=== PATIENT | male | born 1930 | race Caucasian/White ===

== ENCOUNTER 2017-01-23 18:08 | Inpatient (IN) | payer MEDICARE, OTHER ==
--- NOTE | 2017-01-23 18:17 | ER Document Report ---
ED Medical Screen (RME) - General Stated Complaint: DIARRHEA, WEAKNESS Time seen by provider: 18:16 Mode of Arrival: Medic Information source: Patient Notes: 86-year-old male presents to ED via EMS for diarrhea for a year and weakness for a week your patient has a history of A. fib. EMS states he is in A. fib right now. I have greeted and performed a rapid initial assessment of this patient. A comprehensive ED assessment and evaluation of the patient, analysis of test results and completion of medical decision making process will be conducted by an additional ED providers. TRAVEL OUTSIDE OF THE [place] IN LAST 30 DAYS: No - Related Data Allergies/Adverse Reactions: No Known Allergies Allergy (Verified 10/03/12 13:12) Past Medical History - Past Medical History Cardiac Medical History: Reports: Hx Atrial Fibrillation - intermittent, Hx Hypercholesterolemia, Hx Hypertension Renal/ Medical History: Reports: Hx Benign Prostatic Hyperplasia GI Medical History: Reports: Hx Gastroesophageal Reflux Disease Musculoskeltal Medical History: Reports Hx Arthritis, Reports Hx Musculoskeletal Deformity, Reports Hx Musculoskeletal Trauma Psychiatric Medical History: Reports: Hx Anxiety, Hx Depression Past Surgical History: Reports: Hx Cardiac Catheterization - several, Hx Cardiac Surgery - ablation, Hx Cholecystectomy, Hx Inguinal Hernia, Hx Orthopedic Surgery - diskectomy - Immunizations Hx Diphtheria, Pertussis, Tetanus Vaccination: No
[2017-01-23 19:20] LABS: HEMATOCRIT 32.4 % (37.9-51.0); HEMOGLOBIN 10.7 g/dL (13.5-17.0); HGB HCT DIFFERENCE -0.3; MEAN CORPUSCULAR HEMOGLOBIN 37.1 pg (27.0-33.4); RED BLOOD COUNT 2.89 10^6/uL (4.35-5.55); RED CELL DISTRIBUTION WIDTH 13.5 % (11.5-14.0); WHITE BLOOD COUNT 16.8 10^3/uL (4.0-10.5)
[2017-01-23 19:38] LABS: ALANINE AMINOTRANSFERASE 21 U/L (21-72); ALBUMIN 2.5 g/dL (3.5-5.0); ALKALINE PHOSPHATASE 183 U/L (38-126); ANION GAP 14 (5-19); ASPARTATE AMINO TRANSFERASE 20 U/L (17-59); BILIRUBIN,DIRECT 0.4 mg/dL (0.0-0.4); BILIRUBIN,TOTAL 0.5 mg/dL (0.2-1.3); BLOOD UREA NITROGEN 37 mg/dL (7-20); CARBON DIOXIDE 21 mmol/L (22-30); CHLORIDE 107 mmol/L (98-107); CREATINE KINASE 154 U/L (55-170); CREATININE RESULT 1.45 mg/dL (0.52-1.25); GLUCOSE 113 mg/dL (75-110); POTASSIUM 3.5 mmol/L (3.6-5.0); SODIUM 142.1 mmol/L (137-145); TOTAL PROTEIN 5.9 g/dL (6.3-8.2)
[2017-01-23 19:46] LABS: CALCIUM 4.8 mg/dL (8.4-10.2)
[2017-01-23 19:48] LABS: BASOPHILS % (MANUAL) 1 % (0-2); EOSINOPHILS % (MANUAL) 0 % (0-6); LYMPHOCYTES % (MANUAL) 50 % (13-45); TOTAL CELLS COUNTED 100
[2017-01-23 19:51] LABS: POLYCHROMASIA SLIGHT; SMUDGE CELLS PRESENT; TOXIC GRANULATION SLIGHT
[2017-01-23 19:52] LABS: PLATELET CLUMPS PRESENT; TARGET CELLS SLIGHT
[2017-01-23 19:53] LABS: MEAN CORPUSCULAR VOLUME 112 fl (80-97)
[2017-01-23] MEDS ORDERED: NORMAL SALINE 1000 ML 500 ML IV ONE (21:25)
--- NOTE | 2017-01-23 21:31 | ER Document Report ---
ED General - General Chief Complaint: General Weakness Stated Complaint: DIARRHEA, WEAKNESS Mode of Arrival: Medic Information source: Patient, Relative Notes: This is an 86-year-old male with multiple medical problems who presents with increasing weakness for the past 2 weeks. Patient says that this is gotten to the point where she has to assist him even to sit up in the bed. Of note the patient has had chronic diarrhea for about a year. He states that he has a bowel movement every 3 or 4 days and that it is always diarrhea. He has noticed some black stool. He has had nausea but no vomiting. Intermittent abdominal cramping but no current abdominal pain. He denies any fevers or chills. He is never had a seizure. He is unsure if he is ever been told that his calcium is low before. Chart review reveals that he was seen in the ER for diarrhea at some point last year at which time he was prescribed Cipro and followed up with his primary care physician. He states that the diarrhea has been persistent since then. Of note he takes Imodium frequently. TRAVEL OUTSIDE OF THE [place] IN LAST 30 DAYS: No - Related Data Allergies/Adverse Reactions: No Known Allergies Allergy (Verified 10/03/12 13:12) Past Medical History - General Information source: Patient, H Records - Social History Smoking Status: Unknown if Ever Smoked Family History: Reviewed & Not Pertinent Patient has suicidal ideation: No Patient has homicidal ideation: No - Past Medical History Cardiac Medical History: Reports: Hx Atrial Fibrillation - intermittent, Hx Hypercholesterolemia, Hx Hypertension Renal/ Medical History: Reports: Hx Benign Prostatic Hyperplasia. Denies: Hx Peritoneal Dialysis GI Medical History: Reports: Hx Gastroesophageal Reflux Disease Musculoskeltal Medical History: Reports Hx Arthritis, Reports Hx Musculoskeletal Deformity, Reports Hx Musculoskeletal Trauma Psychiatric Medical History: Reports: Hx Anxiety, Hx Depression Past Surgical History: Reports: Hx Cardiac Catheterization - several, Hx Cardiac Surgery - ablation, Hx Cholecystectomy, Hx Inguinal Hernia, Hx Orthopedic Surgery - diskectomy - Immunizations Hx Diphtheria, Pertussis, Tetanus Vaccination: No Review of Systems - Review of Systems Notes: REVIEW OF SYSTEMS: CONSTITUTIONAL : Denies fever, chills, or sweats. Denies recent illness. EENT: Denies eye, ear, throat, or mouth pain or symptoms. Denies nasal or sinus congestion. CARDIOVASCULAR: Denies chest pain. RESPIRATORY: Denies cough, cold, or chest congestion. Denies shortness of breath, difficulty breathing, or wheezing. GASTROINTESTINAL: As per history of present illness GENITOURINARY: Denies difficulty urinating, painful urination, burning, frequency, or blood in urine. MUSCULOSKELETAL: Denies neck or back pain or joint pain or swelling. SKIN: Denies rash or skin lesions. HEMATOLOGIC : Denies easy bruising or bleeding. LYMPHATIC: Denies swollen, enlarged glands. NEUROLOGICAL: Denies altered mental status or loss of consciousness. Denies headache. PSYCHIATRIC: Denies anxiety or stress or depression. ALL OTHER SYSTEMS REVIEWED AND NEGATIVE. Physical Exam - Vital signs Vitals: Temp Pulse Resp BP Pulse Ox 97.4 F 78 16 117/69 100 01/23/17 18:20 01/23/17 18:20 01/23/17 18:20 01/23/17 18:20 01/23/17 18:20 - Notes Notes: PHYSICAL EXAMINATION: GENERAL: Thin frail elderly male who is in no acute distress but appears tired and pale. Pleasant and conversant HEAD: Atraumatic, normocephalic. EYES: Pupils equal round and reactive to light, extraocular movements intact, sclera anicteric, conjunctiva are normal. ENT: nares patent, oropharynx clear without exudates. Mucous membranes somewhat dry NECK: Normal range of motion, supple without lymphadenopathy LUNGS: Breath sounds clear to auscultation bilaterally and equal. No wheezes rales or rhonchi. HEART: Regular rate and rhythm, 4/5 systolic murmur across precordium ABDOMEN: Soft, nontender, normoactive bowel sounds. No guarding, no rebound. No masses appreciated. Rectal exam with external hemorhoid that is not bleeding or inflamed. Dark stool in vault, soft. EXTREMITIES: Normal range of motion, 1+ bilateral LE edema, symmetric. NEUROLOGICAL: Cranial nerves grossly intact. No gross focal motor or sensory deficits appreciated. PSYCH: Normal mood, normal affect. SKIN: Warm, Dry, pale normal turgor, no rashes or lesions noted. Course - Re-evaluation Re-evalutation: 01/23/17 22:31 Patient noted to be markedly hypocalcemic and hypomagnesemic. He is hemodynamically stable. Magnesium will be repleted first followed by IV calcium. I discussed the case with Dr. Hoyt who will admit the patient to the [facility] - Vital Signs Vital signs: Temp Pulse Resp BP Pulse Ox 97.4 F 78 15 105/75 100 01/23/17 18:20 01/23/17 18:20 01/23/17 21:31 01/23/17 21:31 01/23/17 18:20 - Laboratory Result Diagrams: 01/23/17 18:49 01/23/17 18:49 Laboratory results interpreted by me: 01/23/17 01/23/17 01/23/17 18:49 18:49 18:49 WBC 16.8 H RBC 2.89 L Hgb 10.7 L Hct 32.4 L MCV 112 H MCH 37.1 H Plt Count 108 L Lymphocytes % (Manual) 50 H Monocytes % (Manual) 1 L Abs Lymphs (Manual) 8.9 H Potassium 3.5 L Carbon Dioxide 21 L BUN 37 H Creatinine 1.45 H Est GFR ( Amer) 56 L Est GFR (Non-Af Amer) 46 L Glucose 113 H Calcium 4.8 L* Ionized Calcium Jazmine Magnesium 0.5 L* Alkaline Phosphatase 183 H Total Protein 5.9 L Albumin 2.5 L 01/23/17 21:25 WBC RBC Hgb Hct MCV MCH Plt Count Lymphocytes % (Manual) Monocytes % (Manual) Abs Lymphs (Manual) Potassium Carbon Dioxide BUN Creatinine Est GFR ( Amer) Est GFR (Non-Af Amer) Glucose Calcium Ionized Calcium Jazmine 0.72 L Magnesium Alkaline Phosphatase Total Protein Albumin - Diagnostic Test Radiology reviewed: Reports reviewed - CT abd/pelvis: diffuse ascites. Large pleural effusion L>R Discharge - Discharge Clinical Impression: Hypocalcemia, Hypomagnesemia, Chronic diarrhea, Hypoalbuminemia Atrial fibrillation Qualifiers: Atrial fibrillation type: chronic Qualified Code(s): I48.2 - Chronic atrial fibrillation Ascites Qualifiers: Ascites type: other type Qualified Code(s): R18.8 - Other ascites Condition: Fair Disposition: ADMITTED INPATIENT Admitting Provider: Evelina Unit Admitted: [facility]
[2017-01-23] MEDS ORDERED: POTASSIUM CHLORIDE 20 MEQ/15 ML UDCUP PO ONE (21:57)
[2017-01-23] MEDS: MAGNESIUM SULFATE/D5W 100 ML IV SCH ×2 (22:05→23:25)
[2017-01-23] MEDS ORDERED: METRONIDAZOLE 500 MG/NS RTU 100 ML IV ONE (22:25)
[2017-01-23] MEDS ORDERED: CIPROFLOXACIN 400 MG/D5W RTU 200 ML IV SCH (23:00)
[2017-01-24] MEDS ORDERED: CALCIUM GLUCONATE 1000 MG/10 ML INJ IV ONE (00:04)
[2017-01-24 03:28] LABS: APPEARANCE,URINE CLEAR; BILIRUBIN,URINE NEGATIVE (NEGATIVE); GLUCOSE, URINE NEGATIVE (NEGATIVE); KETONES,URINE NEGATIVE (NEGATIVE); LEUKOCYTE ESTERASE,URINE NEGATIVE (NEGATIVE); NITRITE,URINE NEGATIVE (NEGATIVE); PROTEIN,URINE NEGATIVE (NEGATIVE); URINE SPECIFIC GRAVITY 1.019; UROBILINOGEN,URINE NEGATIVE mg/dL (<2.0)
[2017-01-24 05:10] LABS: ANION GAP 11 (5-19); BLOOD UREA NITROGEN 35 mg/dL (7-20); CARBON DIOXIDE 22 mmol/L (22-30); CHLORIDE 108 mmol/L (98-107); CREATININE RESULT 1.34 mg/dL (0.52-1.25); GLUCOSE 97 mg/dL (75-110); PHOSPHORUS 3.7 mg/dL (2.5-4.5); SODIUM 141.3 mmol/L (137-145)
[2017-01-24 05:22] LABS: CALCIUM 5.1 mg/dL (8.4-10.2); MAGNESIUM 0.8 mg/dL (1.6-2.3)
--- NOTE | 2017-01-24 08:08 | EKG REPORT ---
SEVERITY:- ABNORMAL ECG - ATRIAL FIBRILLATION RIGHT BUNDLE BRANCH BLOCK [employer] [facility] [place] : Confirmed by: Parmjit Rendon MD 24-Jan-2017 08:07:31
[2017-01-24] MEDS: MAGNESIUM SULFATE 1 GM/D5W 100 ML IV SCH ×2 (08:30→10:09)
[2017-01-24] MEDS ORDERED: ENOXAPARIN SODIUM INJ 40 MG/0.4 ML DISP.SYRIN SUBCUT ONE (09:00)
[2017-01-24] MEDS ORDERED: LEVOMILNACIPRAN HYDROCHLORIDE 80 MG PO SCH (10:00)
[2017-01-24] MEDS ORDERED: NADOLOL 20 MG PO SCH ×2 (10:00)
[2017-01-24] MEDS: NADOLOL 40 MG TABLET PO SCH (10:14)
[2017-01-24] MEDS: POTASSIUM CHLORIDE 10 MEQ TABLET.SA PO SCH (10:14)
[2017-01-24] MEDS: LANSOPRAZOLE 30 MG TAB.RAP.DR PO SCH (10:14)
[2017-01-24] MEDS: TAMSULOSIN HCL 0.4 MG CAP.SR.24H PO SCH (10:15)
[2017-01-24] MEDS: VALSARTAN 80 MG TABLET PO SCH (10:15)
[2017-01-24] MEDS: ASPIRIN 81 MG TABLET, CHEWABLE PO SCH (10:15)
[2017-01-24] MEDS: FOLIC ACID 1 MG TABLET PO SCH (10:15)
[2017-01-24] MEDS: TRAMADOL HCL 50 MG TABLET PO PRN ×2 (10:20→15:14)
[2017-01-24] MEDS ORDERED: CALCIUM GLUCONATE 6,666 MG in DEXTROSE 5%-WATER 500 ML IV ONE (10:30)
[2017-01-24 11:14] LABS: PROTHROMBIN TIME 17.7 SEC (11.4-15.4)
[2017-01-24 11:15] LABS: PARTIAL THROMBOPLASTIN TIME 34.3 SEC (23.5-35.8)
[2017-01-24] MEDS: CIPROFLOXACIN 400 MG/D5W RTU 200 ML IV SCH ×2 (11:25→22:34)
[2017-01-24] MEDS: METRONIDAZOLE 500 MG/NS RTU 100 ML IV SCH ×2 (12:58→17:55)
[2017-01-24 15:25] LABS: PATH REVIEW PATHOLOGIST REVIEWED
[2017-01-24] MEDS ORDERED: (PENDING PHARMACY ID) (Oxycodone Hcl/Acetaminophen [Percocet 10-325 Mg Tablet] 1 TAB) PO PRN (17:48)
[2017-01-24] MEDS: FINASTERIDE 5 MG TABLET PO SCH (17:54)
[2017-01-24] MEDS: FENTANYL 50 MCG/HR PATCH.TD72 TD SCH (18:08)
[2017-01-24] MEDS: OXYCODONE HCL IR 5 MG TABLET PO PRN (18:17)
[2017-01-24] MEDS: OXYCODONE-ACETAMINOPHEN 5-325 MG TABLET PO PRN (18:17)
--- NOTE | 2017-01-24 18:31 | PDOC H&P ---
History of Present Illness Admission Date/PCP: 01/23/17 22:39 JEROME LUGO History of Present Illness: ROMEO HESTER is a 86 year old male known to my practice who presented to the ED with complaint of worsening debility and persistent diarrhea. Spouse reported that over the last couple of days she had to assist patient to sit or transfer from his bed. Patient reported associated nausea, poor appetite and poor p.o intake. There is associated intermittent cramping abdominal pain. No reported associated fever, chills, or vomiting. Patient reported intermittent episodes of difficulty with urination and decrease voiding per volume in recent time. He does have history of BPH with outflow obstructive symptoms. Patient is on pain management with [facility] and currently on Fentanyl and oxycodone-APAP. His medication do include Linzess and Imodium. Past Medical History Cardiac Medical History: Reports: Atrial Fibrillation - intermittent, Hyperlipidema, Hypertension GI Medical History: Reports: Gastroesophageal Reflux Disease Musculoskeltal Medical History: Reports: Arthritis Psychiatric Medical History: Reports: Depression Past Surgical History Past Surgical History: Reports: Cardiac Catheterization - several, Cholecystectomy, Orthopedic Surgery - diskectomy Social History Smoking Status: Former Smoker Last Time Smoked: 1972 Frequency of Alcohol Use: None Hx Recreational Drug Use: No Drugs: None Hx Prescription Drug Abuse: No Family History Family History: Reviewed & Not Pertinent Parental Family History Reviewed: Yes Children Family History Reviewed: Yes Sibling(s) Family History Reviewed.: Yes Medication/Allergy Home Medications: Aspirin [Aspirin 325 mg Tablet] 325 mg PO QAM 01/24/17 Atorvastatin Calcium 40 mg PO DAILY 01/24/17 Esomeprazole Magnesium [Nexium] 40 mg PO DAILY 01/24/17 Ferrous Sulfate [Iron] 325 mg PO DAILY 01/24/17 Finasteride 5 mg PO QPM 01/24/17 Folic Acid 1 mg PO DAILY 01/24/17 Furosemide [Lasix] 40 mg PO DAILY 01/24/17 Levomilnacipran Hydrochloride [Fetzima] 80 mg PO DAILY 01/24/17 Linaclotide [Linzess 145 Mcg Capsule] 145 mg PO DAILY 01/24/17 Mirtazapine 30 mg PO QHS 01/24/17 Nadolol 20 mg PO DAILY 01/24/17 Ondansetron [Ondansetron Odt] 4 mg PO Q6H PRN 01/24/17 Oxycodone HCl/Acetaminophen [Percocet 10-325 Mg Tablet] 1 each PO Q6 01/24/17 Potassium Chloride 20 meq PO DAILY 01/24/17 Pregabalin [Lyrica 75 mg Capsule] 75 mg PO QHS 01/24/17 Tamsulosin HCl 0.4 mg PO DAILY 01/24/17 Tramadol HCl 100 mg PO TID PRN 01/24/17 Valsartan 80 mg PO DAILY 01/24/17 Allergies/Adverse Reactions: No Known Allergies Allergy (Verified 10/03/12 13:12) Review of Systems Constitutional: PRESENT: anorexia, chills, fatigue, weakness. ABSENT: as per HPI, fever(s), headache(s), night sweats, weight gain, weight loss, other Eyes: ABSENT: visual disturbances Ears: ABSENT: hearing changes Nose, Mouth, and Throat: ABSENT: as per HPI, headache(s), mouth pain, sore throat, vertigo, other Cardiovascular: PRESENT: edema Respiratory: PRESENT: dyspnea Gastrointestinal: PRESENT: diarrhea, nausea Genitourinary: PRESENT: difficulty urinating Musculoskeletal: PRESENT: deformity, joint swelling Integumentary: ABSENT: rash, wounds Neurological: PRESENT: abnormal gait, weakness Psychiatric: PRESENT: depression Endocrine: ABSENT: cold intolerance, heat intolerance, menstrual abnormalities, polydipsia, polyuria Hematologic/Lymphatic: ABSENT: easy bleeding, easy bruising, lymphadenopathy Physical Exam Vital Signs: Temp Pulse Resp BP Pulse Ox 97.7 F 67 16 114/69 97 01/24/17 15:48 01/24/17 15:48 01/24/17 15:48 01/24/17 15:48 01/24/17 04:20 Intake & Output 01/23/17 01/24/17 01/25/17 06:59 06:59 06:59 Intake Total 5 440 Balance 5 440 General appearance: PRESENT: no acute distress, cooperative, disheveled Head exam: PRESENT: atraumatic, normocephalic Eye exam: PRESENT: conjunctiva pink, EOMI, PERRLA. ABSENT: scleral icterus Mouth exam: PRESENT: moist, tongue midline Throat exam: ABSENT: post pharyngeal erythema, tonsillar erythema, tonsillar exudate, tonsillogmegaly, other Neck exam: PRESENT: full ROM. ABSENT: carotid bruit, JVD, lymphadenopathy, thyromegaly Respiratory exam: PRESENT: decreased breath sounds - at lung bases Cardiovascular exam: PRESENT: RRR. ABSENT: diastolic murmur, rubs, systolic murmur Vascular exam: PRESENT: pallor GI/Abdominal exam: PRESENT: normal bowel sounds, soft. ABSENT: distended, guarding, mass, organolmegaly, rebound, tenderness Gentrourinary exam: PRESENT: indwelling catheter Extremities exam: PRESENT: pedal edema Musculoskeletal exam: PRESENT: deformity - due to arthritis joint involvment Neurological exam: PRESENT: alert, awake, oriented to person, oriented to place , oriented to time, oriented to situation, CN II-XII grossly intact. ABSENT: motor sensory deficit Psychiatric exam: PRESENT: appropriate affect, normal mood. ABSENT: homicidal ideation, suicidal ideation Skin exam: PRESENT: dry, intact, warm. ABSENT: cyanosis, rash Results Laboratory Results: 01/24/17 04:34 01/24/17 01/24/17 03:05 04:34 Sodium 141.3 Potassium 4.0 Chloride 108 H Carbon Dioxide 22 Anion Gap 11 BUN 35 H Creatinine 1.34 H Est GFR ( Amer) > 60 Est GFR (Non-Af Amer) 51 L Glucose 97 Calcium 5.1 L* Phosphorus 3.7 Magnesium 0.8 L* Urine Color YELLOW Urine Appearance CLEAR Urine pH 5.0 Ur Specific [place] 1.019 Urine Protein NEGATIVE Urine Glucose (UA) NEGATIVE Urine Ketones NEGATIVE Urine Blood NEGATIVE Urine Nitrite NEGATIVE Ur Leukocyte Esterase NEGATIVE Urine WBC (Auto) 4 Urine RBC (Auto) 0 Impressions: Abdomen/Pelvis CT 01/23/17 21:27 IMPRESSION: Diffuse ascites. Large bilateral pleural effusions, left greater than right. Basilar compressive atelectasis. Anasarca. Assessment & Plan - Diagnosis (1) Senile debility Is this a current diagnosis for this admission?: YesPlan: See admitting physician orders. (2) Hypokalemia due to loss of potassium Is this a current diagnosis for this admission?: YesPlan: See admitting physician orders. (3) Ascites Qualifiers: Ascites type: other type Qualified Code(s): R18.8 - Other ascites Is this a current diagnosis for this admission?: YesPlan: See admitting physician orders. (4) Atrial fibrillation Qualifiers: Atrial fibrillation type: chronic Qualified Code(s): I48.2 - Chronic atrial fibrillation Is this a current diagnosis for this admission?: YesPlan: See admitting physician orders. (5) Chronic diarrhea Is this a current diagnosis for this admission?: YesPlan: See admitting physician orders. (6) Hypoalbuminemia Is this a current diagnosis for this admission?: YesPlan: See admitting physician orders. (7) Hypocalcemia Is this a current diagnosis for this admission?: YesPlan: See admitting physician orders. (8) Hypomagnesemia Is this a current diagnosis for this admission?: YesPlan: See admitting physician orders. (9) Chronic use of opiate drugs therapeutic purposes Is this a current diagnosis for this admission?: YesPlan: See admitting physician orders. (10) Probable sepsis Is this a current diagnosis for this admission?: YesPlan: See admitting physician orders. (11) Anasarca Is this a current diagnosis for this admission?: YesPlan: See admitting physician orders. - Time Time Spent: 50 to 70 Minutes Medications reviewed and adjusted accordingly: Yes Anticipated discharge: Home with Homehealth Within: Other - Inpatient Certification Based on my medical assessment, after consideration of the patient's comorbidities, presenting symptoms, or acuity I expect that the services needed warrant INPATIENT care.: Yes I certify that my determination is in accordance with my understanding of Medicare's requirements for reasonable and necessary INPATIENT services [42 CFR 412.3e].: Yes Medical Necessity: Need Close Monitoring Due to Risk of Patient Decompensation, Need For Continuous Telemetry Monitoring, Need for Pain Control, Need for IV Antibiotics, Risk of Complication if Not Cared For in Hospital Post Hospital Care: D/C Chief Of Staff Documentation - Plan Summary Plan Summary: See admitting physician orders.
[2017-01-24 19:53] LABS: ANION GAP 10 (5-19); BLOOD UREA NITROGEN 31 mg/dL (7-20); CARBON DIOXIDE 21 mmol/L (22-30); CHLORIDE 105 mmol/L (98-107); CREATININE RESULT 1.12 mg/dL (0.52-1.25); GLUCOSE 115 mg/dL (75-110); POTASSIUM 4.1 mmol/L (3.6-5.0); SODIUM 136.3 mmol/L (137-145)
[2017-01-24 20:06] LABS: CALCIUM 6.1 mg/dL (8.4-10.2)
[2017-01-24] MEDS: MAGNESIUM SULFATE/D5W 100 ML IV SCH ×2 (21:29→22:34)
[2017-01-24] MEDS: MIRTAZAPINE 15 MG TABLET PO SCH (21:30)
[2017-01-24] MEDS: ATORVASTATIN CALCIUM 40 MG TABLET PO SCH (21:30)
[2017-01-24] MEDS ORDERED: (PENDING PHARMACY ID) (Mirtazapine [Mirtazapine] 30 MG) PO SCH (22:00)
[2017-01-24] MEDS ORDERED: PREGABALIN 75 MG CAPSULE PO SCH (22:00)
[2017-01-25] MEDS: METRONIDAZOLE 500 MG/NS RTU 100 ML IV SCH ×5 (00:48→23:26)
[2017-01-25] MEDS: OXYCODONE-ACETAMINOPHEN 5-325 MG TABLET PO PRN ×3 (00:49→19:52)
[2017-01-25] MEDS: OXYCODONE HCL IR 5 MG TABLET PO PRN ×2 (00:49→11:23)
[2017-01-25] MEDS: LANSOPRAZOLE 30 MG TAB.RAP.DR PO SCH (05:10)
[2017-01-25 05:31] LABS: HEMATOCRIT 30.3 % (37.9-51.0); HEMOGLOBIN 10.3 g/dL (13.5-17.0); HGB HCT DIFFERENCE 0.6; MEAN CORPUSCULAR HEMOGLOBIN 37.7 pg (27.0-33.4); MEAN CORPUSCULAR HGB CONC 33.8 g/dL (32.0-36.0); MEAN CORPUSCULAR VOLUME 111 fl (80-97); RED BLOOD COUNT 2.72 10^6/uL (4.35-5.55); RED CELL DISTRIBUTION WIDTH 13.3 % (11.5-14.0); WHITE BLOOD COUNT 11.7 10^3/uL (4.0-10.5)
[2017-01-25 05:53] LABS: ALANINE AMINOTRANSFERASE 16 U/L (21-72); ALBUMIN 2.3 g/dL (3.5-5.0); ALKALINE PHOSPHATASE 163 U/L (38-126); ANION GAP 9 (5-19); ASPARTATE AMINO TRANSFERASE 16 U/L (17-59); BILIRUBIN,DIRECT 0.3 mg/dL (0.0-0.4); BILIRUBIN,TOTAL 0.6 mg/dL (0.2-1.3); BLOOD UREA NITROGEN 27 mg/dL (7-20); CARBON DIOXIDE 23 mmol/L (22-30); CHLORIDE 106 mmol/L (98-107); GLUCOSE 108 mg/dL (75-110); MAGNESIUM 1.3 mg/dL (1.6-2.3); PHOSPHORUS 3.2 mg/dL (2.5-4.5); POTASSIUM 4.5 mmol/L (3.6-5.0); TOTAL PROTEIN 5.5 g/dL (6.3-8.2)
[2017-01-25 05:59] LABS: BAND NEUTROPHILS % (MANUAL) 1 % (3-5); BASOPHILS % (MANUAL) 0 % (0-2); EOSINOPHILS % (MANUAL) 2 % (0-6); LYMPHOCYTES % (MANUAL) 49 % (13-45); TOTAL CELLS COUNTED 100
[2017-01-25 06:01] LABS: CALCIUM 6.4 mg/dL (8.4-10.2)
[2017-01-25 06:02] LABS: SMUDGE CELLS PRESENT; TOXIC VACUOLATION PRESENT
[2017-01-25] MEDS: ENOXAPARIN SODIUM INJ 40 MG/0.4 ML DISP.SYRIN SUBCUT SCH (08:25)
[2017-01-25] MEDS: MAGNESIUM SULFATE 1 GM/D5W 100 ML IV SCH ×2 (11:12→13:24)
[2017-01-25] MEDS: FUROSEMIDE 40 MG TABLET PO SCH (11:17)
[2017-01-25] MEDS: ASPIRIN 81 MG TABLET, CHEWABLE PO SCH (11:17)
[2017-01-25] MEDS: TAMSULOSIN HCL 0.4 MG CAP.SR.24H PO SCH (11:17)
[2017-01-25] MEDS: FOLIC ACID 1 MG TABLET PO SCH (11:18)
[2017-01-25] MEDS: NADOLOL 40 MG TABLET PO SCH (11:18)
[2017-01-25] MEDS: VALSARTAN 80 MG TABLET PO SCH (11:18)
[2017-01-25] MEDS: POTASSIUM CHLORIDE 10 MEQ TABLET.SA PO SCH (11:19)
[2017-01-25] MEDS: CIPROFLOXACIN 400 MG/D5W RTU 200 ML IV SCH ×2 (12:18→21:40)
[2017-01-25] MEDS: FINASTERIDE 5 MG TABLET PO SCH (17:17)
--- NOTE | 2017-01-25 19:42 | PDOC PROGRESS REPORT ---
Subjective Progress Note for:: 01/25/17 Subjective:: Patient continue to experience significant electrolyte derangement with hypomagnesemia and hypocalcemia. He denied any diarrhea since admission. No nausea, vomiting, or abdominal pain. Tolerating full liquid diet. No chest pain or difficulty with breathing. No fever or chills. Physical Exam Vital Signs: Temp Pulse Resp BP Pulse Ox 97.4 F 60 18 120/60 85 L 01/25/17 15:20 01/25/17 15:20 01/25/17 15:20 01/25/17 15:20 01/25/17 15:20 Intake & Output 01/24/17 01/25/17 01/26/17 06:59 06:59 06:59 Intake Total 5 2570 1587 Output Total 725 675 Balance 5 1845 912 Weight 73.6 kg General appearance: PRESENT: no acute distress, cooperative Head exam: PRESENT: atraumatic, normocephalic Eye exam: PRESENT: conjunctiva pink, EOMI, PERRLA. ABSENT: scleral icterus Mouth exam: PRESENT: moist Neck exam: PRESENT: full ROM. ABSENT: carotid bruit, JVD, lymphadenopathy, thyromegaly Respiratory exam: PRESENT: clear to auscultation christen, decreased breath sounds - lung bases Cardiovascular exam: PRESENT: RRR. ABSENT: diastolic murmur, rubs, systolic murmur Vascular exam: PRESENT: pallor GI/Abdominal exam: PRESENT: normal bowel sounds, soft. ABSENT: distended, guarding, mass, organolmegaly, rebound, tenderness Rectal exam: PRESENT: deferred Gentrourinary exam: PRESENT: indwelling catheter Extremities exam: PRESENT: pedal edema Neurological exam: PRESENT: alert, awake, oriented to person, oriented to place , oriented to time, oriented to situation, CN II-XII grossly intact. ABSENT: motor sensory deficit Psychiatric exam: PRESENT: appropriate affect, normal mood. ABSENT: homicidal ideation, suicidal ideation Skin exam: PRESENT: dry, intact, warm. ABSENT: cyanosis, rash Results Laboratory Results: 01/25/17 04:43 01/25/17 04:43 01/24/17 01/25/17 01/25/17 19:18 04:43 04:43 WBC 11.7 H RBC 2.72 L Hgb 10.3 L Hct 30.3 L MCV 111 H MCH 37.7 H MCHC 33.8 RDW 13.3 Plt Count 96 L Seg Neutrophils % Not Reportable Lymphocytes % Not Reportable Monocytes % Not Reportable Eosinophils % Not Reportable Basophils % Not Reportable Absolute Neutrophils Not Reportable Absolute Lymphocytes Not Reportable Absolute Monocytes Not Reportable Absolute Eosinophils Not Reportable Absolute Basophils Not Reportable Sodium 136.3 L 138.0 Potassium 4.1 4.5 Chloride 105 106 Carbon Dioxide 21 L 23 Anion Gap 10 9 BUN 31 H 27 H Creatinine 1.12 1.10 Est GFR ( Amer) > 60 > 60 Est GFR (Non-Af Amer) > 60 > 60 Glucose 115 H 108 Calcium 6.1 L* 6.4 L* Phosphorus 3.2 Magnesium 1.0 L* 1.3 L Total Bilirubin 0.6 AST 16 L ALT 16 L Alkaline Phosphatase 163 H Total Protein 5.5 L Albumin 2.3 L Impressions: Abdomen/Pelvis CT 01/23/17 21:27 IMPRESSION: Diffuse ascites. Large bilateral pleural effusions, left greater than right. Basilar compressive atelectasis. Anasarca. Assessment & Plan - Diagnosis (1) Senile debility Is this a current diagnosis for this admission?: YesPlan: I will request PT and OT intervention. Advance diet to mechanical soft with nutritional supplementation for his low albumin and calorie deficiency. See attending physician orders. (2) Hypokalemia due to loss of potassium Is this a current diagnosis for this admission?: YesPlan: See attending physician orders. (3) Ascites Qualifiers: Ascites type: other type Qualified Code(s): R18.8 - Other ascites Is this a current diagnosis for this admission?: YesPlan: See attending physician orders. (4) Atrial fibrillation Qualifiers: Atrial fibrillation type: chronic Qualified Code(s): I48.2 - Chronic atrial fibrillation Is this a current diagnosis for this admission?: YesPlan: See attending physician orders. (5) Chronic diarrhea Is this a current diagnosis for this admission?: YesPlan: See attending physician orders. (6) Hypoalbuminemia Is this a current diagnosis for this admission?: YesPlan: See attending physician orders. (7) Hypocalcemia Is this a current diagnosis for this admission?: YesPlan: See attending physician orders. (8) Hypomagnesemia Is this a current diagnosis for this admission?: YesPlan: See attending physician orders. (9) Chronic use of opiate drugs therapeutic purposes Is this a current diagnosis for this admission?: YesPlan: See attending physician orders. (10) Probable sepsis Is this a current diagnosis for this admission?: YesPlan: See attending physician orders. (11) Anasarca Is this a current diagnosis for this admission?: YesPlan: See attending physician orders. - Time Time Spent with patient: 25-34 minutes Medications reviewed and adjusted accordingly: Yes Anticipated discharge: Home with Homehealth Within: Other - Inpatient Certification Based on my medical assessment, after consideration of the patient's comorbidities, presenting symptoms, or acuity I expect that the services needed warrant INPATIENT care.: Yes I certify that my determination is in accordance with my understanding of Medicare's requirements for reasonable and necessary INPATIENT services [42 CFR 412.3e].: Yes Medical Necessity: Need Close Monitoring Due to Risk of Patient Decompensation, Need For Continuous Telemetry Monitoring, Need for IV Antibiotics, Risk of Complication if Not Cared For in Hospital Post Hospital Care: D/C Calender Let Off Operator Documentation - Plan Summary Plan Summary: See attending physician orders.
[2017-01-25] MEDS: ATORVASTATIN CALCIUM 40 MG TABLET PO SCH (21:40)
[2017-01-25] MEDS: MIRTAZAPINE 15 MG TABLET PO SCH (21:40)
[2017-01-25] MEDS ORDERED: CALCIUM GLUCONATE 6,666 MG in DEXTROSE 5%-WATER 500 ML IV ONE (22:00)
[2017-01-26] MEDS ORDERED: TRIMETHOBENZAMIDE HCL 300 MG CAPSULE ONE (00:29)
[2017-01-26] MEDS: TRIMETHOBENZAMIDE HCL 300 MG CAPSULE PO PRN (00:31)
[2017-01-26] MEDS ORDERED: ONDANSETRON 4 MG TAB.RAPDIS PO PRN (00:36)
[2017-01-26] MEDS: OXYCODONE-ACETAMINOPHEN 5-325 MG TABLET PO PRN ×3 (03:37→17:29)
[2017-01-26 05:24] LABS: HEMOGLOBIN 11.6 g/dL (13.5-17.0); HGB HCT DIFFERENCE -0.2; MEAN CORPUSCULAR HGB CONC 33.1 g/dL (32.0-36.0); MEAN CORPUSCULAR VOLUME 112 fl (80-97); RED BLOOD COUNT 3.13 10^6/uL (4.35-5.55); RED CELL DISTRIBUTION WIDTH 13.1 % (11.5-14.0); WHITE BLOOD COUNT 11.3 10^3/uL (4.0-10.5)
[2017-01-26] MEDS: METRONIDAZOLE 500 MG/NS RTU 100 ML IV SCH ×3 (05:37→17:29)
[2017-01-26] MEDS: LANSOPRAZOLE 30 MG TAB.RAP.DR PO SCH (05:37)
[2017-01-26 05:41] LABS: ANION GAP 11 (5-19); BLOOD UREA NITROGEN 23 mg/dL (7-20); CALCIUM 7.9 mg/dL (8.4-10.2); CARBON DIOXIDE 21 mmol/L (22-30); CHLORIDE 102 mmol/L (98-107); CREATININE RESULT 0.89 mg/dL (0.52-1.25); GLUCOSE 94 mg/dL (75-110); MAGNESIUM 1.3 mg/dL (1.6-2.3); POTASSIUM 5.1 mmol/L (3.6-5.0); SODIUM 134.1 mmol/L (137-145)
[2017-01-26 06:45] LABS: BAND NEUTROPHILS % (MANUAL) 1 % (3-5); BASOPHILS % (MANUAL) 0 % (0-2); EOSINOPHILS % (MANUAL) 1 % (0-6); LYMPHOCYTES % (MANUAL) 34 % (13-45); TOTAL CELLS COUNTED 100
[2017-01-26 06:46] LABS: RBC MORPHOLOGY COMMENT NORMO-CYTIC/CHROMIC; TOXIC GRANULATION SLIGHT
[2017-01-26] MEDS: ASPIRIN 81 MG TABLET, CHEWABLE PO SCH (09:54)
[2017-01-26] MEDS: TAMSULOSIN HCL 0.4 MG CAP.SR.24H PO SCH (09:54)
[2017-01-26] MEDS: VALSARTAN 80 MG TABLET PO SCH (09:55)
[2017-01-26] MEDS: POTASSIUM CHLORIDE 10 MEQ TABLET.SA PO SCH (09:55)
[2017-01-26] MEDS: NADOLOL 40 MG TABLET PO SCH (09:55)
[2017-01-26] MEDS: FOLIC ACID 1 MG TABLET PO SCH (09:55)
[2017-01-26] MEDS: FUROSEMIDE 40 MG TABLET PO SCH (09:55)
[2017-01-26] MEDS: OXYCODONE HCL IR 5 MG TABLET PO PRN ×3 (09:56→17:30)
[2017-01-26] MEDS: MAGNESIUM SULFATE/D5W 1 GM/100 ML RTUPB IV SCH ×2 (09:56→11:09)
[2017-01-26] MEDS: CIPROFLOXACIN 400 MG/D5W RTU 200 ML IV SCH ×2 (09:57→21:32)
[2017-01-26] MEDS: ENOXAPARIN SODIUM INJ 40 MG/0.4 ML DISP.SYRIN SUBCUT SCH (11:11)
[2017-01-26] MEDS: FINASTERIDE 5 MG TABLET PO SCH (17:29)
--- NOTE | 2017-01-26 18:12 | PDOC PROGRESS REPORT ---
Subjective Progress Note for:: 01/26/17 Subjective:: Patient continue to experience significant electrolyte derangement with hypomagnesemia and hypocalcemia. He denied any diarrhea since admission. No nausea, vomiting, or abdominal pain. Tolerating full liquid diet. No chest pain or difficulty with breathing. No fever or chills. Physical Exam Vital Signs: Temp Pulse Resp BP Pulse Ox 97.6 F 19 L 16 136/72 H 92 01/26/17 16:08 01/26/17 16:08 01/26/17 16:08 01/26/17 16:08 01/26/17 16:08 Intake & Output 01/25/17 01/26/17 01/27/17 06:59 06:59 06:59 Intake Total 2570 3227 320 Output Total 725 1525 650 Balance 1845 1702 -330 Weight 73.6 kg 75.6 kg Physical Exam: General appearance: PRESENT: no acute distress, cooperative Head exam: PRESENT: atraumatic, normocephalic Eye exam: PRESENT: conjunctiva pink, EOMI, PERRLA. ABSENT: scleral icterus Mouth exam: PRESENT: moist Respiratory exam: PRESENT: clear to auscultation christen, decreased breath sounds - lung bases Cardiovascular exam: PRESENT: RRR. ABSENT: diastolic murmur, rubs, systolic murmur GI/Abdominal exam: PRESENT: normal bowel sounds, soft. ABSENT: distended, guarding, mass, organomegaly, rebound, tenderness Rectal exam: PRESENT: deferred Gentrourinary exam: PRESENT: indwelling catheter Extremities exam: PRESENT: pedal edema Neurological exam: PRESENT: alert, awake, oriented to person, oriented to place , oriented to time, oriented to situation, CN II-XII grossly intact. ABSENT: motor sensory deficit Psychiatric exam: PRESENT: appropriate affect, normal mood. ABSENT: homicidal ideation, suicidal ideation Skin exam: PRESENT: dry, intact, warm. ABSENT: cyanosis, rash Results Laboratory Results: 01/26/17 04:37 01/26/17 04:37 01/26/17 01/26/17 04:37 04:37 WBC 11.3 H RBC 3.13 L Hgb 11.6 L Hct 35.0 L MCV 112 H MCH 37.0 H MCHC 33.1 RDW 13.1 Plt Count 105 L Seg Neutrophils % Not Reportable Lymphocytes % Not Reportable Monocytes % Not Reportable Eosinophils % Not Reportable Basophils % Not Reportable Absolute Neutrophils Not Reportable Absolute Lymphocytes Not Reportable Absolute Monocytes Not Reportable Absolute Eosinophils Not Reportable Absolute Basophils Not Reportable Sodium 134.1 L Potassium 5.1 H Chloride 102 Carbon Dioxide 21 L Anion Gap 11 BUN 23 H Creatinine 0.89 Est GFR ( Amer) > 60 Est GFR (Non-Af Amer) > 60 Glucose 94 Calcium 7.9 L Magnesium 1.3 L Impressions: Abdomen/Pelvis CT 01/23/17 21:27 IMPRESSION: Diffuse ascites. Large bilateral pleural effusions, left greater than right. Basilar compressive atelectasis. Anasarca. Assessment & Plan - Diagnosis (1) Senile debility Is this a current diagnosis for this admission?: YesPlan: See attending physician orders. (2) Hypokalemia due to loss of potassium Is this a current diagnosis for this admission?: YesPlan: Over corrected with slight elevation this morning. See attending physician orders. (3) Ascites Qualifiers: Ascites type: other type Qualified Code(s): R18.8 - Other ascites Is this a current diagnosis for this admission?: YesPlan: This is more of anasarca level with scrotal and penile swelling. Patient do have indwelling Thomas catheter in situ. I will change his Furosemide to 40 mg IV daily. See attending physician orders. (4) Atrial fibrillation Qualifiers: Atrial fibrillation type: chronic Qualified Code(s): I48.2 - Chronic atrial fibrillation Is this a current diagnosis for this admission?: YesPlan: See attending physician orders. (5) Chronic diarrhea Is this a current diagnosis for this admission?: YesPlan: See attending physician orders. (6) Hypoalbuminemia Is this a current diagnosis for this admission?: YesPlan: See attending physician orders. (7) Hypocalcemia Is this a current diagnosis for this admission?: YesPlan: See attending physician orders. (8) Hypomagnesemia Is this a current diagnosis for this admission?: YesPlan: He will receive 2 grams of Magnesium sulfate infusion. See attending physician orders. (9) Chronic use of opiate drugs therapeutic purposes Is this a current diagnosis for this admission?: YesPlan: Patient has not had any significant bowel movement since admission and expressed concern for developing constipation. I brad consider usage of Linzess 72.5mg po daily for OIC related to his opiate usage. See attending physician orders. (10) Probable sepsis Is this a current diagnosis for this admission?: YesPlan: See attending physician orders. (11) Anasarca Is this a current diagnosis for this admission?: YesPlan: See attending physician orders. - Time Time Spent with patient: 25-34 minutes Medications reviewed and adjusted accordingly: Yes Anticipated discharge: Home with Homehealth Within: Other - Inpatient Certification Post Hospital Care: D/C Gps Navigation Installer Documentation - Plan Summary Plan Summary: See attending physician orders.
[2017-01-26] MEDS: LUBIPROSTONE 8 MCG CAPSULE PO SCH (20:49)
[2017-01-26] MEDS: MIRTAZAPINE 15 MG TABLET PO SCH (21:30)
[2017-01-26] MEDS: ATORVASTATIN CALCIUM 40 MG TABLET PO SCH (21:30)
[2017-01-27] MEDS: OXYCODONE-ACETAMINOPHEN 5-325 MG TABLET PO PRN ×3 (00:05→20:27)
[2017-01-27] MEDS: METRONIDAZOLE 500 MG/NS RTU 100 ML IV SCH ×4 (00:05→16:53)
[2017-01-27] MEDS: OXYCODONE HCL IR 5 MG TABLET PO PRN ×3 (00:06→20:27)
[2017-01-27] MEDS: LANSOPRAZOLE 30 MG TAB.RAP.DR PO SCH (06:24)
[2017-01-27] MEDS: LUBIPROSTONE 8 MCG CAPSULE PO SCH ×2 (06:24→20:26)
[2017-01-27 06:38] LABS: ALANINE AMINOTRANSFERASE 18 U/L (21-72); ALBUMIN 2.5 g/dL (3.5-5.0); ALKALINE PHOSPHATASE 174 U/L (38-126); ANION GAP 7 (5-19); ASPARTATE AMINO TRANSFERASE 23 U/L (17-59); BILIRUBIN,DIRECT 0.4 mg/dL (0.0-0.4); BLOOD UREA NITROGEN 18 mg/dL (7-20); CALCIUM 7.6 mg/dL (8.4-10.2); CARBON DIOXIDE 24 mmol/L (22-30); CHLORIDE 102 mmol/L (98-107); CREATININE RESULT 0.83 mg/dL (0.52-1.25); GLUCOSE 96 mg/dL (75-110); POTASSIUM 4.4 mmol/L (3.6-5.0); SODIUM 133.3 mmol/L (137-145); TOTAL PROTEIN 6.1 g/dL (6.3-8.2)
[2017-01-27] MEDS: ENOXAPARIN SODIUM INJ 40 MG/0.4 ML DISP.SYRIN SUBCUT SCH (08:06)
[2017-01-27] MEDS: VALSARTAN 80 MG TABLET PO SCH (09:50)
[2017-01-27] MEDS: ASPIRIN 81 MG TABLET, CHEWABLE PO SCH (09:50)
[2017-01-27] MEDS: FOLIC ACID 1 MG TABLET PO SCH (11:08)
[2017-01-27] MEDS: TAMSULOSIN HCL 0.4 MG CAP.SR.24H PO SCH (11:08)
[2017-01-27] MEDS: POTASSIUM CHLORIDE 10 MEQ TABLET.SA PO SCH (11:09)
[2017-01-27] MEDS: NADOLOL 40 MG TABLET PO SCH (11:11)
[2017-01-27] MEDS: FUROSEMIDE INJ/PF 40 MG/4 ML SDV IV SCH (11:12)
[2017-01-27] MEDS: CIPROFLOXACIN 400 MG/D5W RTU 200 ML IV SCH ×2 (11:13→21:29)
[2017-01-27] MEDS: FINASTERIDE 5 MG TABLET PO SCH (16:54)
[2017-01-27] MEDS: FENTANYL 50 MCG/HR PATCH.TD72 TD SCH (16:54)
--- NOTE | 2017-01-27 16:59 | PDOC PROGRESS REPORT ---
Subjective Progress Note for:: 01/27/17 Subjective:: Patient denied any chest pain or difficulty with breathing. Remain on IV Lasix therapy with improvement in his urine output. His overall scrotal, penile and extremities swelling comparatively improving. He denied any nausea, vomiting or abdominal pain. Appetite is improving and patient is demanding for advance in her diet. No diarrhea. No reported fever or chills. Physical Exam Vital Signs: Temp Pulse Resp BP Pulse Ox 97.8 F 81 18 111/61 100 01/27/17 13:18 01/27/17 14:00 01/27/17 13:18 01/27/17 13:18 01/27/17 13:18 Intake & Output 01/26/17 01/27/17 01/28/17 06:59 06:59 06:59 Intake Total 3227 1688 825 Output Total 1525 2450 1200 Balance 1702 -832 -338 Weight 75.6 kg 76.1 kg Physical Exam: General appearance: PRESENT: no acute distress, cooperative Head exam: PRESENT: atraumatic, normocephalic Eye exam: PRESENT: conjunctiva pink, EOMI, PERRLA. ABSENT: scleral icterus Mouth exam: PRESENT: moist Respiratory exam: PRESENT: clear to auscultation christen, decreased breath sounds - lung bases Cardiovascular exam: PRESENT: RRR. ABSENT: diastolic murmur, rubs, systolic murmur GI/Abdominal exam: PRESENT: normal bowel sounds, soft. ABSENT: distended, guarding, mass, organomegaly, rebound, tenderness Gentrourinary exam: PRESENT: indwelling catheter, improving scrotal and penile swelling Extremities exam: PRESENT: Improving pedal edema Neurological exam: PRESENT: alert, awake, oriented to person, oriented to place , oriented to time, oriented to situation, CN II-XII grossly intact. ABSENT: motor sensory deficit Psychiatric exam: PRESENT: appropriate affect, normal mood. ABSENT: homicidal ideation, suicidal ideation Skin exam: PRESENT: dry, intact, warm. ABSENT: cyanosis, rash Results Laboratory Results: 01/26/17 04:37 01/27/17 05:39 01/27/17 05:39 Sodium 133.3 L Potassium 4.4 Chloride 102 Carbon Dioxide 24 Anion Gap 7 BUN 18 Creatinine 0.83 Est GFR ( Amer) > 60 Est GFR (Non-Af Amer) > 60 Glucose 96 Calcium 7.6 L Total Bilirubin 1.0 AST 23 ALT 18 L Alkaline Phosphatase 174 H Total Protein 6.1 L Albumin 2.5 L Corrected calcium 8.80 mg/dL Impressions: Abdomen/Pelvis CT 01/23/17 21:27 IMPRESSION: Diffuse ascites. Large bilateral pleural effusions, left greater than right. Basilar compressive atelectasis. Anasarca. Assessment & Plan - Diagnosis (1) Senile debility Is this a current diagnosis for this admission?: YesPlan: See attending physician orders. (2) Hypokalemia due to loss of potassium Is this a current diagnosis for this admission?: YesPlan: See attending physician orders. (3) Ascites Qualifiers: Ascites type: other type Qualified Code(s): R18.8 - Other ascites Is this a current diagnosis for this admission?: YesPlan: See attending physician orders. (4) Atrial fibrillation Qualifiers: Atrial fibrillation type: chronic Qualified Code(s): I48.2 - Chronic atrial fibrillation Is this a current diagnosis for this admission?: YesPlan: See attending physician orders. (5) Chronic diarrhea Is this a current diagnosis for this admission?: YesPlan: See attending physician orders. (6) Hypoalbuminemia Is this a current diagnosis for this admission?: YesPlan: See attending physician orders. (7) Hypocalcemia Is this a current diagnosis for this admission?: YesPlan: See attending physician orders. His serum calcium is in normal range with correction for his hypoalbiminemia (8) Hypomagnesemia Is this a current diagnosis for this admission?: YesPlan: See attending physician orders. Follow up on pending serum magnesium level post replacement therapy. (9) Chronic use of opiate drugs therapeutic purposes Is this a current diagnosis for this admission?: YesPlan: See attending physician orders. (10) Probable sepsis Is this a current diagnosis for this admission?: YesPlan: Continue IV Ciprofloxacin and Metronidazole coverage. Follow up on blood culture findings. (11) Anasarca Is this a current diagnosis for this admission?: YesPlan: See attending physician orders. Restrict fluid to 1200 ml daily - Time Time Spent with patient: 25-34 minutes Medications reviewed and adjusted accordingly: Yes Anticipated discharge: Home with Homehealth - Inpatient Certification Medical Necessity: Need Close Monitoring Due to Risk of Patient Decompensation, Need For Continuous Telemetry Monitoring, Need for Pain Control, Risk of Complication if Not Cared For in Hospital Post Hospital Care: D/C Integration Solution Architect Documentation - Plan Summary Plan Summary: See attending physician orders.
[2017-01-27] MEDS: MIRTAZAPINE 15 MG TABLET PO SCH (21:32)
[2017-01-27] MEDS: ATORVASTATIN CALCIUM 40 MG TABLET PO SCH (21:32)
[2017-01-28] MEDS: METRONIDAZOLE 500 MG/NS RTU 100 ML IV SCH ×5 (00:45→23:55)
[2017-01-28] MEDS: OXYCODONE HCL IR 5 MG TABLET PO PRN ×3 (02:03→20:12)
[2017-01-28] MEDS: OXYCODONE-ACETAMINOPHEN 5-325 MG TABLET PO PRN ×3 (02:03→20:12)
[2017-01-28] MEDS: LANSOPRAZOLE 30 MG TAB.RAP.DR PO SCH (06:31)
[2017-01-28] MEDS: LUBIPROSTONE 8 MCG CAPSULE PO SCH ×2 (06:31→18:56)
--- NOTE | 2017-01-28 10:08 | PDOC PROGRESS REPORT ---
Subjective Progress Note for:: 01/28/17 Subjective:: Patient is doing fair patient was initially IV Lasix drip currently on IV Lasix and patient's pretty much all the ascites and the leg edema is is all resolving. Patient's denied any chest pain denied any shortness of the breath. Physical Exam Vital Signs: Temp Pulse Resp BP Pulse Ox 98.2 F 88 16 120/67 96 01/28/17 08:00 01/28/17 08:00 01/28/17 08:00 01/28/17 08:00 01/28/17 08:00 Intake & Output 01/27/17 01/28/17 01/29/17 06:59 06:59 06:59 Intake Total 1688 2095 Output Total 2450 3850 Balance -762 -1755 Weight 76.1 kg General appearance: PRESENT: no acute distress, well-developed, well-nourished Head exam: PRESENT: atraumatic, normocephalic Eye exam: PRESENT: conjunctiva pink, EOMI, PERRLA. ABSENT: scleral icterus Ear exam: PRESENT: normal external ear exam Mouth exam: PRESENT: moist, tongue midline Neck exam: PRESENT: full ROM. ABSENT: carotid bruit, JVD, lymphadenopathy, thyromegaly Respiratory exam: PRESENT: clear to auscultation christen Cardiovascular exam: PRESENT: RRR. ABSENT: diastolic murmur, rubs, systolic murmur Pulses: PRESENT: normal dorsalis pedis pul, +2 pedal pulses bilateral Vascular exam: PRESENT: normal capillary refill GI/Abdominal exam: PRESENT: normal bowel sounds, soft. ABSENT: distended, guarding, mass, organolmegaly, rebound, tenderness Rectal exam: PRESENT: deferred Neurological exam: PRESENT: alert, awake, oriented to person, oriented to place , oriented to time, oriented to situation, CN II-XII grossly intact. ABSENT: motor sensory deficit Psychiatric exam: PRESENT: appropriate affect, normal mood. ABSENT: homicidal ideation, suicidal ideation Skin exam: PRESENT: dry, intact, warm. ABSENT: cyanosis, rash Results Laboratory Results: 01/26/17 04:37 01/27/17 05:39 Impressions: Abdomen/Pelvis CT 01/23/17 21:27 IMPRESSION: Diffuse ascites. Large bilateral pleural effusions, left greater than right. Basilar compressive atelectasis. Anasarca. Assessment & Plan - Diagnosis (1) Anasarca Is this a current diagnosis for this admission?: YesPlan: Continues the IV Lasix (2) Atrial fibrillation Qualifiers: Atrial fibrillation type: chronic Qualified Code(s): I48.2 - Chronic atrial fibrillation Is this a current diagnosis for this admission?: YesPlan: Stable continues the current medications (3) Chronic diarrhea Is this a current diagnosis for this admission?: YesPlan: Stable (4) Chronic use of opiate drugs therapeutic purposes Is this a current diagnosis for this admission?: YesPlan: Continues the current medications (5) Probable sepsis Is this a current diagnosis for this admission?: YesPlan: Continues the Cipro and Flagyl (6) Senile debility Is this a current diagnosis for this admission?: Yes - Time Time Spent with patient: 15-24 minutes Medications reviewed and adjusted accordingly: Yes Anticipated discharge: Other - Inpatient Certification Medical Necessity: Need Close Monitoring Due to Risk of Patient Decompensation, Need for IV Antibiotics Post Hospital Care: D/C State Editor Documentation - Plan Summary Plan Summary: Grant current medications check the CBC and Chem-7 in the morning
[2017-01-28] MEDS: ENOXAPARIN SODIUM INJ 40 MG/0.4 ML DISP.SYRIN SUBCUT SCH (10:31)
[2017-01-28] MEDS: ASPIRIN 81 MG TABLET, CHEWABLE PO SCH (10:31)
[2017-01-28] MEDS: VALSARTAN 80 MG TABLET PO SCH (10:32)
[2017-01-28] MEDS: NADOLOL 40 MG TABLET PO SCH (10:32)
[2017-01-28] MEDS: TAMSULOSIN HCL 0.4 MG CAP.SR.24H PO SCH (10:32)
[2017-01-28] MEDS: POTASSIUM CHLORIDE 10 MEQ TABLET.SA PO SCH (10:33)
[2017-01-28] MEDS: FUROSEMIDE INJ/PF 40 MG/4 ML SDV IV SCH (10:33)
[2017-01-28] MEDS: FOLIC ACID 1 MG TABLET PO SCH (10:34)
[2017-01-28] MEDS ORDERED: MAGNESIUM SULFATE/D5W 1 GM/100 ML RTUPB IV ONE (12:00)
[2017-01-28] MEDS: CIPROFLOXACIN 400 MG/D5W RTU 200 ML IV SCH ×2 (12:14→21:13)
[2017-01-28] MEDS: FINASTERIDE 5 MG TABLET PO SCH (18:54)
[2017-01-28] MEDS: MIRTAZAPINE 15 MG TABLET PO SCH (21:13)
[2017-01-28] MEDS: ATORVASTATIN CALCIUM 40 MG TABLET PO SCH (21:13)
[2017-01-29 05:00] LABS: HEMATOCRIT 30.1 % (37.9-51.0); HEMOGLOBIN 10.2 g/dL (13.5-17.0); HGB HCT DIFFERENCE 0.5; MEAN CORPUSCULAR HEMOGLOBIN 37.2 pg (27.0-33.4); MEAN CORPUSCULAR HGB CONC 33.9 g/dL (32.0-36.0); MEAN CORPUSCULAR VOLUME 110 fl (80-97); RED BLOOD COUNT 2.74 10^6/uL (4.35-5.55); RED CELL DISTRIBUTION WIDTH 13.2 % (11.5-14.0)
[2017-01-29 05:25] LABS: ANION GAP 8 (5-19); BLOOD UREA NITROGEN 20 mg/dL (7-20); CALCIUM 7.4 mg/dL (8.4-10.2); CARBON DIOXIDE 24 mmol/L (22-30); CHLORIDE 101 mmol/L (98-107); CREATININE RESULT 0.96 mg/dL (0.52-1.25); GLUCOSE 107 mg/dL (75-110); POTASSIUM 3.9 mmol/L (3.6-5.0); SODIUM 132.8 mmol/L (137-145)
[2017-01-29 05:38] LABS: BASOPHILS % (MANUAL) 0 % (0-2); EOSINOPHILS % (MANUAL) 3 % (0-6); LYMPHOCYTES % (MANUAL) 41 % (13-45); TOTAL CELLS COUNTED 100
[2017-01-29 05:42] LABS: HYPOCHROMASIA 1+; OVALOCYTES SLIGHT; SCHISTOCYTES SLIGHT; SMUDGE CELLS PRESENT; TOXIC GRANULATION 1+
[2017-01-29 05:43] LABS: BURR CELLS 2+; ROULEAUX SLIGHT
[2017-01-29] MEDS: LANSOPRAZOLE 30 MG TAB.RAP.DR PO SCH (06:01)
[2017-01-29] MEDS: METRONIDAZOLE 500 MG/NS RTU 100 ML IV SCH ×3 (06:01→18:08)
[2017-01-29] MEDS: LUBIPROSTONE 8 MCG CAPSULE PO SCH ×2 (06:01→18:07)
[2017-01-29] MEDS: OXYCODONE-ACETAMINOPHEN 5-325 MG TABLET PO PRN ×3 (06:07→18:23)
[2017-01-29] MEDS: OXYCODONE HCL IR 5 MG TABLET PO PRN ×3 (06:08→18:24)
--- NOTE | 2017-01-29 09:38 | PDOC PROGRESS REPORT ---
Subjective Progress Note for:: 01/29/17 Subjective:: Patient is doing fair patient was initially IV Lasix drip currently on IV Lasix and patient's pretty much all the ascites and the leg edema is is all resolving. Patient's denied any chest pain denied any shortness of the breath. pt was confuse last night pt is taking several pain med pt also constipated Physical Exam Vital Signs: Temp Pulse Resp BP Pulse Ox 98.0 F 85 18 117/66 96 01/29/17 07:47 01/29/17 07:47 01/29/17 07:47 01/29/17 07:47 01/29/17 07:47 Intake & Output 01/28/17 01/29/17 01/30/17 06:59 06:59 06:59 Intake Total 2095 2291 Output Total 3850 4000 Balance -1755 -1709 Weight 71.2 kg General appearance: PRESENT: no acute distress Head exam: PRESENT: normocephalic Eye exam: PRESENT: PERRLA Mouth exam: PRESENT: neck supple Respiratory exam: PRESENT: clear to auscultation christen Cardiovascular exam: PRESENT: +S1, +S2 GI/Abdominal exam: PRESENT: normal bowel sounds, soft. ABSENT: tenderness Extremities exam: ABSENT: pedal edema Neurological exam: PRESENT: alert, awake Psychiatric exam: PRESENT: anxious Skin exam: PRESENT: dry Results Laboratory Results: 01/29/17 04:44 01/29/17 04:44 01/28/17 01/29/17 01/29/17 10:08 04:44 04:44 WBC 10.0 RBC 2.74 L Hgb 10.2 L Hct 30.1 L MCV 110 H MCH 37.2 H MCHC 33.9 RDW 13.2 Plt Count 80 L Seg Neutrophils % Not Reportable Lymphocytes % Not Reportable Monocytes % Not Reportable Eosinophils % Not Reportable Basophils % Not Reportable Absolute Neutrophils Not Reportable Absolute Lymphocytes Not Reportable Absolute Monocytes Not Reportable Absolute Eosinophils Not Reportable Absolute Basophils Not Reportable Sodium 132.8 L Potassium 3.9 Chloride 101 Carbon Dioxide 24 Anion Gap 8 BUN 20 Creatinine 0.96 Est GFR ( Amer) > 60 Est GFR (Non-Af Amer) > 60 Glucose 107 Calcium 7.4 L Magnesium 1.1 L* 01/24/17 04:34 Blood Blood Culture - Final NO GROWTH IN 5 DAYS 01/23/17 23:35 Blood Blood Culture - Final NO GROWTH IN 5 DAYS Impressions: Abdomen/Pelvis CT 01/23/17 21:27 IMPRESSION: Diffuse ascites. Large bilateral pleural effusions, left greater than right. Basilar compressive atelectasis. Anasarca. Assessment & Plan - Diagnosis (1) Anasarca Is this a current diagnosis for this admission?: YesPlan: Continues the IV Lasix (2) Atrial fibrillation Qualifiers: Atrial fibrillation type: chronic Qualified Code(s): I48.2 - Chronic atrial fibrillation Is this a current diagnosis for this admission?: YesPlan: Stable continues the current medications (3) Chronic diarrhea Is this a current diagnosis for this admission?: YesPlan: Stable (4) Chronic use of opiate drugs therapeutic purposes Is this a current diagnosis for this admission?: YesPlan: Continues the current medications (5) Probable sepsis Is this a current diagnosis for this admission?: YesPlan: Continues the Cipro and Flagyl (6) Senile debility Is this a current diagnosis for this admission?: Yes - Time Time Spent with patient: 15-24 minutes Critical Time spent with patient: 15-24 minutes Medications reviewed and adjusted accordingly: Yes Anticipated discharge: Other Within: Other - Inpatient Certification Medical Necessity: Significant Comorbidiites Make Outpatient Treatment Too Risky , Need Close Monitoring Due to Risk of Patient Decompensation Post Hospital Care: D/C Braid Maker Documentation - Plan Summary Plan Summary: add mirlax cont amitiza may need adjust pain med repat cma7 in am
[2017-01-29] MEDS: CIPROFLOXACIN 400 MG/D5W RTU 200 ML IV SCH ×2 (10:01→23:21)
[2017-01-29] MEDS: FOLIC ACID 1 MG TABLET PO SCH (10:03)
[2017-01-29] MEDS: POTASSIUM CHLORIDE 10 MEQ TABLET.SA PO SCH (10:03)
[2017-01-29] MEDS: VALSARTAN 80 MG TABLET PO SCH (10:03)
[2017-01-29] MEDS: ASPIRIN 81 MG TABLET, CHEWABLE PO SCH (10:03)
[2017-01-29] MEDS: TAMSULOSIN HCL 0.4 MG CAP.SR.24H PO SCH (10:04)
[2017-01-29] MEDS: NADOLOL 40 MG TABLET PO SCH (10:19)
[2017-01-29] MEDS: POLYETHYLENE GLYCOL 3350 POWDER 17 GM/1 PACKET PO PRN (10:20)
[2017-01-29] MEDS: ENOXAPARIN SODIUM INJ 40 MG/0.4 ML DISP.SYRIN SUBCUT SCH (10:21)
[2017-01-29] MEDS: FUROSEMIDE INJ/PF 40 MG/4 ML SDV IV SCH (10:21)
[2017-01-29] MEDS: BISACODYL 10 MG SUPP.RECT PR PRN (13:49)
[2017-01-29] MEDS ORDERED: MAGNESIUM SULFATE/D5W 1 GM/100 ML RTUPB IV ONE (14:30)
[2017-01-29] MEDS ORDERED: MAGNESIUM SULFATE 1 GM in D5W 100 ML IV ONE (15:00)
[2017-01-29] MEDS: FINASTERIDE 5 MG TABLET PO SCH (18:07)
[2017-01-29] MEDS ORDERED: TRIMETHOBENZAMIDE HCL 300 MG CAPSULE ONE (19:50)
[2017-01-29] MEDS: MIRTAZAPINE 15 MG TABLET PO SCH (23:21)
[2017-01-29] MEDS: ATORVASTATIN CALCIUM 40 MG TABLET PO SCH (23:21)
[2017-01-30] MEDS: METRONIDAZOLE 500 MG/NS RTU 100 ML IV SCH ×5 (00:25→23:49)
[2017-01-30] MEDS: OXYCODONE-ACETAMINOPHEN 5-325 MG TABLET PO PRN ×2 (04:07→23:49)
[2017-01-30] MEDS: OXYCODONE HCL IR 5 MG TABLET PO PRN ×2 (04:07→23:49)
[2017-01-30 05:33] LABS: ANION GAP 9 (5-19); BLOOD UREA NITROGEN 17 mg/dL (7-20); CALCIUM 7.7 mg/dL (8.4-10.2); CARBON DIOXIDE 24 mmol/L (22-30); CHLORIDE 99 mmol/L (98-107); CREATININE RESULT 0.97 mg/dL (0.52-1.25); GLUCOSE 123 mg/dL (75-110); POTASSIUM 4.3 mmol/L (3.6-5.0); SODIUM 132.2 mmol/L (137-145)
[2017-01-30 05:41] LABS: HEMATOCRIT 31.8 % (37.9-51.0); HEMOGLOBIN 10.8 g/dL (13.5-17.0); HGB HCT DIFFERENCE 0.6; MEAN CORPUSCULAR HEMOGLOBIN 37.6 pg (27.0-33.4); MEAN CORPUSCULAR HGB CONC 34.1 g/dL (32.0-36.0); MEAN CORPUSCULAR VOLUME 110 fl (80-97); RED BLOOD COUNT 2.88 10^6/uL (4.35-5.55); RED CELL DISTRIBUTION WIDTH 13.2 % (11.5-14.0); WHITE BLOOD COUNT 9.6 10^3/uL (4.0-10.5)
[2017-01-30] MEDS: LANSOPRAZOLE 30 MG TAB.RAP.DR PO SCH (06:06)
[2017-01-30] MEDS: LUBIPROSTONE 8 MCG CAPSULE PO SCH ×2 (06:06→21:16)
[2017-01-30 06:28] LABS: BASOPHILS % (MANUAL) 2 % (0-2); EOSINOPHILS % (MANUAL) 1 % (0-6); LYMPHOCYTES % (MANUAL) 22 % (13-45); TOTAL CELLS COUNTED 100
[2017-01-30 06:33] LABS: HYPOCHROMASIA 1+; TOXIC GRANULATION 1+; TOXIC VACUOLATION PRESENT
[2017-01-30 06:34] LABS: OVALOCYTES 1+; POIKILOCYTOSIS 1+
[2017-01-30] MEDS: ENOXAPARIN SODIUM INJ 40 MG/0.4 ML DISP.SYRIN SUBCUT SCH (07:47)
[2017-01-30] MEDS: TAMSULOSIN HCL 0.4 MG CAP.SR.24H PO SCH (09:56)
[2017-01-30] MEDS: FUROSEMIDE INJ/PF 40 MG/4 ML SDV IV SCH (09:56)
[2017-01-30] MEDS: VALSARTAN 80 MG TABLET PO SCH (09:56)
[2017-01-30] MEDS: ASPIRIN 81 MG TABLET, CHEWABLE PO SCH (09:57)
[2017-01-30] MEDS: FOLIC ACID 1 MG TABLET PO SCH (09:57)
[2017-01-30] MEDS: NADOLOL 40 MG TABLET PO SCH (09:57)
[2017-01-30] MEDS: POTASSIUM CHLORIDE 10 MEQ TABLET.SA PO SCH (09:57)
[2017-01-30] MEDS: CIPROFLOXACIN 400 MG/D5W RTU 200 ML IV SCH ×2 (09:58→21:42)
[2017-01-30 12:34] LABS: PATH REVIEW PATHOLOGIST REVIEWED
[2017-01-30] MEDS ORDERED: MAGNESIUM SULFATE/D5W 1 GM/100 ML RTUPB IV ONE ×3 (16:29→22:30)
[2017-01-30] MEDS: FENTANYL 50 MCG/HR PATCH.TD72 TD SCH (17:34)
[2017-01-30] MEDS: FINASTERIDE 5 MG TABLET PO SCH (17:34)
--- NOTE | 2017-01-30 18:05 | PDOC PROGRESS REPORT ---
Subjective Progress Note for:: 01/30/17 Subjective:: No chest pain or difficulty with breathing. Remain on IV Lasix therapy with improvement in his overall anasarca swelling and urine output. No nausea, vomiting or abdominal pain. Improved appetite and P.O intake. No diarrhea. No reported fever or chills. Physical Exam Vital Signs: Temp Pulse Resp BP Pulse Ox 98.6 F 89 20 117/60 94 01/30/17 07:51 01/30/17 07:51 01/30/17 07:51 01/30/17 07:51 01/30/17 07:51 Intake & Output 01/29/17 01/30/17 01/31/17 06:59 06:59 06:59 Intake Total 2291 2252 Output Total 4000 1300 Balance -1709 952 Weight 71.2 kg 72.1 kg Physical Exam: General appearance: PRESENT: no acute distress, cooperative Head exam: PRESENT: atraumatic, normocephalic Eye exam: PRESENT: conjunctiva pink, EOMI, PERRLA. ABSENT: scleral icterus Mouth exam: PRESENT: moist Respiratory exam: PRESENT: clear to auscultation christen, decreased breath sounds - lung bases Cardiovascular exam: PRESENT: RRR. ABSENT: diastolic murmur, rubs, systolic murmur GI/Abdominal exam: PRESENT: normal bowel sounds, soft. ABSENT: distended, guarding, mass, organomegaly, rebound, tenderness Gentrourinary exam: PRESENT: indwelling catheter, improving scrotal and penile swelling Extremities exam: PRESENT: Improving pedal edema Neurological exam: PRESENT: alert, awake, oriented to person, oriented to place , oriented to time, oriented to situation, CN II-XII grossly intact. ABSENT: motor sensory deficit Psychiatric exam: PRESENT: appropriate affect, normal mood. ABSENT: homicidal ideation, suicidal ideation Skin exam: PRESENT: dry, intact, warm. ABSENT: cyanosis, rash Results Laboratory Results: 01/30/17 04:28 01/30/17 04:28 01/29/17 01/30/17 01/30/17 04:44 04:28 04:28 WBC 9.6 RBC 2.88 L Hgb 10.8 L Hct 31.8 L MCV 110 H MCH 37.6 H MCHC 34.1 RDW 13.2 Plt Count 87 L Seg Neutrophils % Not Reportable Lymphocytes % Not Reportable Monocytes % Not Reportable Eosinophils % Not Reportable Basophils % Not Reportable Absolute Neutrophils Not Reportable Absolute Lymphocytes Not Reportable Absolute Monocytes Not Reportable Absolute Eosinophils Not Reportable Absolute Basophils Not Reportable Sodium 132.2 L Potassium 4.3 Chloride 99 Carbon Dioxide 24 Anion Gap 9 BUN 17 Creatinine 0.97 Est GFR ( Amer) > 60 Est GFR (Non-Af Amer) > 60 Glucose 123 H Calcium 7.7 L Magnesium 1.1 L* 01/24/17 04:34 Blood Blood Culture - Final NO GROWTH IN 5 DAYS Impressions: Abdomen/Pelvis CT 01/23/17 21:27 IMPRESSION: Diffuse ascites. Large bilateral pleural effusions, left greater than right. Basilar compressive atelectasis. Anasarca. Head CT 01/29/17 00:00 IMPRESSION: MILD CHRONIC CHANGES OF ATROPHY AND MICROVASCULAR ISCHEMIA. NO ACUTE PROCESS. Assessment & Plan - Diagnosis (1) Senile debility Is this a current diagnosis for this admission?: YesPlan: See attending physician orders. I will request for PT / OT evaluation and input. I discussed possible need for short term rehabilitation with patient during this visit but he is currently refusing this recommendation. (2) Hypokalemia due to loss of potassium Is this a current diagnosis for this admission?: YesPlan: Resolved for couple of days. See attending physician orders. (3) Ascites Qualifiers: Ascites type: other type Qualified Code(s): R18.8 - Other ascites Is this a current diagnosis for this admission?: YesPlan: Improving. See attending physician orders. (4) Atrial fibrillation Qualifiers: Atrial fibrillation type: chronic Qualified Code(s): I48.2 - Chronic atrial fibrillation Is this a current diagnosis for this admission?: YesPlan: See attending physician orders. (5) Chronic diarrhea Is this a current diagnosis for this admission?: YesPlan: See attending physician orders. (6) Hypoalbuminemia Is this a current diagnosis for this admission?: YesPlan: See attending physician orders. (7) Hypocalcemia Is this a current diagnosis for this admission?: YesPlan: See attending physician orders. His serum calcium is in normal range with correction for his hypoalbiminemia (8) Hypomagnesemia Is this a current diagnosis for this admission?: YesPlan: See attending physician orders. Follow up on pending serum magnesium level and replacement will be done as needed. (9) Chronic use of opiate drugs therapeutic purposes Is this a current diagnosis for this admission?: YesPlan: See attending physician orders. (10) Probable sepsis Is this a current diagnosis for this admission?: YesPlan: Continue IV Ciprofloxacin and Metronidazole coverage. His admitting Leukocytosis has resolved. Still no stool evaluation so far. Blood culture is no growth x 5 days. (11) Anasarca Is this a current diagnosis for this admission?: YesPlan: See attending physician orders. There is overall improvement in his anasarca swelling with significant resolution o0f penile and scrotal swelling. I will request for Thomas catheter removal today. - Time Time Spent with patient: 25-34 minutes Medications reviewed and adjusted accordingly: Yes Anticipated discharge: Home with Homehealth Within: Other - Inpatient Certification Based on my medical assessment, after consideration of the patient's comorbidities, presenting symptoms, or acuity I expect that the services needed warrant INPATIENT care.: Yes I certify that my determination is in accordance with my understanding of Medicare's requirements for reasonable and necessary INPATIENT services [42 CFR 412.3e].: Yes Medical Necessity: Need Close Monitoring Due to Risk of Patient Decompensation, Need For Continuous Telemetry Monitoring, Need for IV Antibiotics, Risk of Complication if Not Cared For in Hospital Post Hospital Care: D/C Soup Person Documentation - Plan Summary Plan Summary: See attending physician orders.
[2017-01-30] MEDS: MIRTAZAPINE 15 MG TABLET PO SCH (21:17)
[2017-01-30] MEDS: ATORVASTATIN CALCIUM 40 MG TABLET PO SCH (21:17)
[2017-01-31 05:30] LABS: ANION GAP 8 (5-19); BLOOD UREA NITROGEN 17 mg/dL (7-20); CALCIUM 7.6 mg/dL (8.4-10.2); CARBON DIOXIDE 25 mmol/L (22-30); CHLORIDE 98 mmol/L (98-107); CREATININE RESULT 0.88 mg/dL (0.52-1.25); GLUCOSE 109 mg/dL (75-110); POTASSIUM 4.3 mmol/L (3.6-5.0); SODIUM 131.4 mmol/L (137-145)
[2017-01-31] MEDS: METRONIDAZOLE 500 MG/NS RTU 100 ML IV SCH (06:11)
[2017-01-31] MEDS: LUBIPROSTONE 8 MCG CAPSULE PO SCH ×2 (06:12→18:14)
[2017-01-31] MEDS: LANSOPRAZOLE 30 MG TAB.RAP.DR PO SCH (06:12)
[2017-01-31] MEDS: ENOXAPARIN SODIUM INJ 40 MG/0.4 ML DISP.SYRIN SUBCUT SCH (08:13)
[2017-01-31] MEDS: VALSARTAN 80 MG TABLET PO SCH (10:09)
[2017-01-31] MEDS: FOLIC ACID 1 MG TABLET PO SCH (10:09)
[2017-01-31] MEDS: POTASSIUM CHLORIDE 10 MEQ TABLET.SA PO SCH (10:10)
[2017-01-31] MEDS: ASPIRIN 81 MG TABLET, CHEWABLE PO SCH (10:10)
[2017-01-31] MEDS: TAMSULOSIN HCL 0.4 MG CAP.SR.24H PO SCH (10:10)
[2017-01-31] MEDS: FUROSEMIDE INJ/PF 40 MG/4 ML SDV IV SCH (10:12)
[2017-01-31] MEDS: NADOLOL 40 MG TABLET PO SCH (10:17)
[2017-01-31] MEDS: OXYCODONE-ACETAMINOPHEN 5-325 MG TABLET PO PRN ×2 (11:25→21:54)
[2017-01-31] MEDS: OXYCODONE HCL IR 5 MG TABLET PO PRN ×2 (11:25→21:56)
[2017-01-31] MEDS: TRIMETHOBENZAMIDE HCL 300 MG CAPSULE PO PRN ×2 (11:25→20:22)
[2017-01-31] MEDS ORDERED: MAGNESIUM OXIDE 400 MG TABLET PO SCH (14:00)
[2017-01-31] MEDS: MAGNESIUM SULFATE 1 GM/D5W 100 ML IV SCH ×2 (14:43→16:13)
[2017-01-31] MEDS: FINASTERIDE 5 MG TABLET PO SCH (17:32)
--- NOTE | 2017-01-31 18:13 | PDOC PROGRESS REPORT ---
Subjective Progress Note for:: 01/31/17 Subjective:: No chest pain or difficulty with breathing. No nausea, vomiting or abdominal pain. Improved appetite and P.O intake. No diarrhea. No reported fever or chills. Overall swelling has been improving. Physical Exam Vital Signs: Temp Pulse Resp BP Pulse Ox 98.4 F 77 19 101/62 91 L 01/31/17 08:10 01/31/17 08:10 01/31/17 08:10 01/31/17 08:10 01/31/17 08:10 Intake & Output 01/30/17 01/31/17 02/01/17 06:59 06:59 06:59 Intake Total 2252 225 Output Total 1299 2024 Balance 952 -1800 Weight 72.1 kg Physical Exam: General appearance: PRESENT: no acute distress, cooperative Head exam: PRESENT: atraumatic, normocephalic Eye exam: PRESENT: conjunctiva pink, EOMI, PERRLA. ABSENT: scleral icterus Mouth exam: PRESENT: moist Respiratory exam: PRESENT: clear to auscultation christen, decreased breath sounds - lung bases Cardiovascular exam: PRESENT: RRR. ABSENT: diastolic murmur, rubs, systolic murmur GI/Abdominal exam: PRESENT: normal bowel sounds, soft. ABSENT: distended, guarding, mass, organomegaly, rebound, tenderness Genitourinary exam: PRESENT: improving scrotal and penile swelling Extremities exam: PRESENT: Improving pedal edema Neurological exam: PRESENT: alert, awake, oriented to person, oriented to place , oriented to time, oriented to situation, CN II-XII grossly intact. ABSENT: motor sensory deficit Psychiatric exam: PRESENT: appropriate affect, normal mood. ABSENT: homicidal ideation, suicidal ideation Skin exam: PRESENT: dry, intact, warm. ABSENT: cyanosis, rash Results Laboratory Results: 01/30/17 04:28 01/31/17 04:40 01/30/17 01/30/17 01/31/17 04:28 04:28 04:40 WBC 9.6 RBC 2.88 L Hgb 10.8 L Hct 31.8 L MCV 110 H MCH 37.6 H MCHC 34.1 RDW 13.2 Plt Count 87 L Sodium 131.4 L Potassium 4.3 Chloride 98 Carbon Dioxide 25 Anion Gap 8 BUN 17 Creatinine 0.88 Est GFR ( Amer) > 60 Est GFR (Non-Af Amer) > 60 Glucose 109 Calcium 7.6 L Magnesium 1.1 L* Impressions: Abdomen/Pelvis CT 01/23/17 21:27 IMPRESSION: Diffuse ascites. Large bilateral pleural effusions, left greater than right. Basilar compressive atelectasis. Anasarca. Head CT 01/29/17 00:00 IMPRESSION: MILD CHRONIC CHANGES OF ATROPHY AND MICROVASCULAR ISCHEMIA. NO ACUTE PROCESS. Assessment & Plan - Diagnosis (1) Senile debility Is this a current diagnosis for this admission?: YesPlan: See attending physician orders. (2) Hypokalemia due to loss of potassium Is this a current diagnosis for this admission?: YesPlan: See attending physician orders. (3) Ascites Qualifiers: Ascites type: other type Qualified Code(s): R18.8 - Other ascites Is this a current diagnosis for this admission?: YesPlan: Improving. See attending physician orders. (4) Atrial fibrillation Qualifiers: Atrial fibrillation type: chronic Qualified Code(s): I48.2 - Chronic atrial fibrillation Is this a current diagnosis for this admission?: YesPlan: See attending physician orders. (5) Chronic diarrhea Is this a current diagnosis for this admission?: YesPlan: See attending physician orders. (6) Hypoalbuminemia Is this a current diagnosis for this admission?: YesPlan: See attending physician orders. (7) Hypocalcemia Is this a current diagnosis for this admission?: YesPlan: See attending physician orders. His serum calcium is in normal range with correction for his hypoalbiminemia (8) Hypomagnesemia Is this a current diagnosis for this admission?: YesPlan: See attending physician orders. Follow up on pending serum magnesium level and replacement will be done as needed. (9) Chronic use of opiate drugs therapeutic purposes Is this a current diagnosis for this admission?: YesPlan: See attending physician orders. (10) Probable sepsis Is this a current diagnosis for this admission?: YesPlan: Continue IV Ciprofloxacin and Metronidazole coverage x 8th day with intent to discontinue after today's doses. (11) Anasarca Is this a current diagnosis for this admission?: YesPlan: See attending physician orders. There is overall improvement in his anasarca swelling with significant resolution of penile and scrotal swelling. - Time Time Spent with patient: 25-34 minutes Medications reviewed and adjusted accordingly: Yes Anticipated discharge: SNF Within: Other - Inpatient Certification Medical Necessity: Need Close Monitoring Due to Risk of Patient Decompensation, Need For Continuous Telemetry Monitoring, Need for IV Antibiotics, Risk of Complication if Not Cared For in Hospital Post Hospital Care: D/C or Transfer Summary - Plan Summary Plan Summary: See attending physician orders.
[2017-01-31] MEDS: BISACODYL 10 MG SUPP.RECT PR PRN (20:22)
[2017-01-31] MEDS: ATORVASTATIN CALCIUM 40 MG TABLET PO SCH (21:53)
[2017-01-31] MEDS: MIRTAZAPINE 15 MG TABLET PO SCH (21:54)
[2017-02-01] MEDS: LUBIPROSTONE 8 MCG CAPSULE PO SCH ×2 (06:01→17:57)
[2017-02-01] MEDS: LANSOPRAZOLE 30 MG TAB.RAP.DR PO SCH (06:01)
[2017-02-01] MEDS: ENOXAPARIN SODIUM INJ 40 MG/0.4 ML DISP.SYRIN SUBCUT SCH (08:08)
[2017-02-01] MEDS: OXYCODONE HCL IR 5 MG TABLET PO PRN ×2 (10:00→19:07)
[2017-02-01] MEDS: OXYCODONE-ACETAMINOPHEN 5-325 MG TABLET PO PRN ×2 (10:01→19:07)
[2017-02-01] MEDS: VALSARTAN 80 MG TABLET PO SCH (10:01)
[2017-02-01] MEDS: TAMSULOSIN HCL 0.4 MG CAP.SR.24H PO SCH (10:02)
[2017-02-01] MEDS: NADOLOL 40 MG TABLET PO SCH (10:02)
[2017-02-01] MEDS: FOLIC ACID 1 MG TABLET PO SCH (10:02)
[2017-02-01] MEDS: ASPIRIN 81 MG TABLET, CHEWABLE PO SCH (10:02)
[2017-02-01] MEDS: FUROSEMIDE INJ/PF 40 MG/4 ML SDV IV SCH (10:03)
[2017-02-01] MEDS: POTASSIUM CHLORIDE 10 MEQ TABLET.SA PO SCH (10:03)
[2017-02-01] MEDS: MAGNESIUM OXIDE 400 MG TABLET PO SCH ×2 (10:17→17:57)
[2017-02-01] MEDS: POLYETHYLENE GLYCOL 3350 POWDER 17 GM/1 PACKET PO PRN (17:56)
[2017-02-01] MEDS: FINASTERIDE 5 MG TABLET PO SCH (17:57)
--- NOTE | 2017-02-01 18:16 | PDOC PROGRESS REPORT ---
Subjective Progress Note for:: 02/01/17 Subjective:: Patient reported feeling weaker today and poor bowel movement. No nausea, vomiting or abdominal pain. Appetite and P.O intake remain fair. No diarrhea since admission. Patient is currently on Amitiza at 8 mcg p.o bid due to reported associated diarrhea prior to current admission. No chest pain or difficulty with breathing. No reported fever or chills. Physical Exam Vital Signs: Temp Pulse Resp BP Pulse Ox 97.9 F 74 18 123/69 95 02/01/17 11:26 02/01/17 15:53 02/01/17 15:53 02/01/17 15:53 02/01/17 15:53 Intake & Output 01/31/17 02/01/17 02/02/17 06:59 06:59 06:59 Intake Total 225 696 Output Total 2024 1325 Balance -1800 -629 Weight 71.9 kg Physical Exam: General appearance: PRESENT: no acute distress, cooperative Head exam: PRESENT: atraumatic, normocephalic Eye exam: PRESENT: conjunctiva pink, EOMI, PERRLA. ABSENT: scleral icterus Mouth exam: PRESENT: moist Respiratory exam: PRESENT: clear to auscultation christen, decreased breath sounds - lung bases Cardiovascular exam: PRESENT: RRR. ABSENT: diastolic murmur, rubs, systolic murmur GI/Abdominal exam: PRESENT: normal bowel sounds, soft. ABSENT: distended, guarding, mass, organomegaly, rebound, tenderness Genitourinary exam: PRESENT: improving scrotal and penile swelling Extremities exam: PRESENT: Improving pedal edema Neurological exam: PRESENT: alert, awake, oriented to person, oriented to place , oriented to time, oriented to situation, CN II-XII grossly intact. ABSENT: motor sensory deficit Psychiatric exam: PRESENT: appropriate affect, normal mood. ABSENT: homicidal ideation, suicidal ideation Skin exam: PRESENT: dry, intact, warm. ABSENT: cyanosis, rash Results Laboratory Results: 01/30/17 04:28 01/31/17 04:40 Impressions: Abdomen/Pelvis CT 01/23/17 21:27 IMPRESSION: Diffuse ascites. Large bilateral pleural effusions, left greater than right. Basilar compressive atelectasis. Anasarca. Head CT 01/29/17 00:00 IMPRESSION: MILD CHRONIC CHANGES OF ATROPHY AND MICROVASCULAR ISCHEMIA. NO ACUTE PROCESS. Assessment & Plan - Diagnosis (1) Senile debility Is this a current diagnosis for this admission?: YesPlan: See attending physician orders. (2) Hypokalemia due to loss of potassium Is this a current diagnosis for this admission?: YesPlan: Resolved. See attending physician orders. (3) Ascites Qualifiers: Ascites type: other type Qualified Code(s): R18.8 - Other ascites Is this a current diagnosis for this admission?: YesPlan: Improving. See attending physician orders. (4) Atrial fibrillation Qualifiers: Atrial fibrillation type: chronic Qualified Code(s): I48.2 - Chronic atrial fibrillation Is this a current diagnosis for this admission?: YesPlan: See attending physician orders. (5) Chronic diarrhea Is this a current diagnosis for this admission?: YesPlan: Less liked pathologic. Most likely secondary to management of OIC related to opiate usage for chronic pain management. See attending physician orders. (6) Hypoalbuminemia Is this a current diagnosis for this admission?: YesPlan: See attending physician orders. (7) Hypocalcemia Is this a current diagnosis for this admission?: YesPlan: Resolved. See attending physician orders. (8) Hypomagnesemia Is this a current diagnosis for this admission?: YesPlan: Persistent hypomagnesemia. I will increase Mag Oxide to 400mg p.o bid. See attending physician orders. (9) Chronic use of opiate drugs therapeutic purposes Is this a current diagnosis for this admission?: YesPlan: I will increase his Amitiza to 24 mcg p.o bid. I will consider use of Linzess 72 mg po daily upon discharge for his IOC management. See attending physician orders. (10) Probable sepsis Is this a current diagnosis for this admission?: YesPlan: Patient Leukocytosis resolved. Currently off antibiotic coverage. See attending physician orders. (11) Anasarca Is this a current diagnosis for this admission?: YesPlan: Improving. See attending physician orders. - Time Time Spent with patient: 25-34 minutes Medications reviewed and adjusted accordingly: Yes Within: within 24 hours - Inpatient Certification Medical Necessity: Need Close Monitoring Due to Risk of Patient Decompensation, Need For Continuous Telemetry Monitoring, Need for Pain Control, Risk of Complication if Not Cared For in Hospital Post Hospital Care: D/C Orthotics Technician Documentation - Plan Summary Plan Summary: See attending physician orders.
[2017-02-01] MEDS: ATORVASTATIN CALCIUM 40 MG TABLET PO SCH (21:56)
[2017-02-01] MEDS: MIRTAZAPINE 15 MG TABLET PO SCH (21:57)
[2017-02-01] MEDS: LUBIPROSTONE 24 MCG CAPSULE PO SCH (21:59)
[2017-02-02] MEDS ORDERED: TRIMETHOBENZAMIDE HCL 300 MG CAPSULE ONE (00:44)
[2017-02-02] MEDS: TRIMETHOBENZAMIDE HCL 300 MG CAPSULE PO PRN (00:45)
[2017-02-02] MEDS: OXYCODONE-ACETAMINOPHEN 5-325 MG TABLET PO PRN ×2 (00:48→14:15)
[2017-02-02] MEDS: OXYCODONE HCL IR 5 MG TABLET PO PRN ×2 (00:48→11:07)
[2017-02-02] MEDS: LANSOPRAZOLE 30 MG TAB.RAP.DR PO SCH (05:55)
[2017-02-02] MEDS: ENOXAPARIN SODIUM INJ 40 MG/0.4 ML DISP.SYRIN SUBCUT SCH (07:50)
[2017-02-02] MEDS: MAGNESIUM OXIDE 400 MG TABLET PO SCH ×2 (09:20→17:49)
[2017-02-02] MEDS: ASPIRIN 81 MG TABLET, CHEWABLE PO SCH (09:20)
[2017-02-02] MEDS: TAMSULOSIN HCL 0.4 MG CAP.SR.24H PO SCH (09:20)
[2017-02-02] MEDS: FUROSEMIDE INJ/PF 40 MG/4 ML SDV IV SCH (09:21)
[2017-02-02] MEDS: FOLIC ACID 1 MG TABLET PO SCH (09:21)
[2017-02-02] MEDS: POTASSIUM CHLORIDE 10 MEQ TABLET.SA PO SCH (09:22)
[2017-02-02] MEDS: NADOLOL 40 MG TABLET PO SCH (09:22)
[2017-02-02] MEDS: LUBIPROSTONE 24 MCG CAPSULE PO SCH ×2 (09:23→21:46)
[2017-02-02] MEDS: VALSARTAN 80 MG TABLET PO SCH (09:24)
[2017-02-02 11:05] LABS: ABSOLUTE BASOPHILS # (AUTO) 0.1 10^3/uL (0.0-0.2); ABSOLUTE EOSINOPHILS # (AUTO) 0.1 10^3/uL (0.0-0.6); ABSOLUTE LYMPHOCYTES (AUTO) 2.6 10^3/uL (0.5-4.7); ABSOLUTE MONOCYTES (AUTO) 0.3 10^3/uL (0.1-1.4); ABSOLUTE NEUT (AUTO) 3.4 10^3/uL (1.7-8.2); EOSINOPHILS % (AUTO) 1.6 % (0-6); HEMOGLOBIN 10.7 g/dL (13.5-17.0); HGB HCT DIFFERENCE 1.1; LYMPHOCYTES % (AUTO) 39.8 % (13-45); MEAN CORPUSCULAR HEMOGLOBIN 37.5 pg (27.0-33.4); MEAN CORPUSCULAR HGB CONC 34.3 g/dL (32.0-36.0); MEAN CORPUSCULAR VOLUME 109 fl (80-97); MONOCYTES % (AUTO) 4.9 % (3-13); RED BLOOD COUNT 2.84 10^6/uL (4.35-5.55); RED CELL DISTRIBUTION WIDTH 13.1 % (11.5-14.0); SEGMENTED NEUTROPHILS % (AUTO) 52.7 % (42-78); WHITE BLOOD COUNT 6.5 10^3/uL (4.0-10.5)
[2017-02-02 11:20] LABS: ANION GAP 11 (5-19); BLOOD UREA NITROGEN 17 mg/dL (7-20); CALCIUM 8.2 mg/dL (8.4-10.2); CARBON DIOXIDE 26 mmol/L (22-30); CHLORIDE 93 mmol/L (98-107); CREATININE RESULT 0.82 mg/dL (0.52-1.25); GLUCOSE 119 mg/dL (75-110); MAGNESIUM 1.3 mg/dL (1.6-2.3); POTASSIUM 4.1 mmol/L (3.6-5.0); SODIUM 129.7 mmol/L (137-145)
[2017-02-02] MEDS: BISACODYL 10 MG SUPP.RECT PR PRN (16:01)
[2017-02-02] MEDS ORDERED: BISACODYL 5 MG TABEC PO ONE (17:15)
--- NOTE | 2017-02-02 17:16 | PDOC PROGRESS REPORT ---
Subjective Progress Note for:: 02/02/17 Subjective:: Patient remain concern about his worsening absence of bowel movement. Admitted to passing gas. No nausea, vomiting or abdominal pain. He denied chest pain or difficulty with breathing. Appetite and P.O intake remain satisfactory. No fever or chills. Physical Exam Vital Signs: Temp Pulse Resp BP Pulse Ox 97.3 F 67 18 142/75 H 100 02/02/17 15:20 02/02/17 15:20 02/02/17 15:20 02/02/17 15:20 02/02/17 15:20 Intake & Output 02/01/17 02/02/17 02/03/17 06:59 06:59 06:59 Intake Total 696 1846 Output Total 1325 1400 Balance -629 446 Weight 71.9 kg 72.1 kg Physical Exam: General appearance: PRESENT: no acute distress, cooperative Head exam: PRESENT: atraumatic, normocephalic Eye exam: PRESENT: conjunctiva pink, EOMI, PERRLA. ABSENT: scleral icterus Mouth exam: PRESENT: moist Respiratory exam: PRESENT: clear to auscultation christen, decreased breath sounds - lung bases Cardiovascular exam: PRESENT: RRR. ABSENT: diastolic murmur, rubs, systolic murmur GI/Abdominal exam: PRESENT: distended, normal bowel sounds, soft. ABSENT: guarding, mass, organomegaly, rebound, tenderness Genitourinary exam: PRESENT: improving scrotal and penile swelling Extremities exam: PRESENT: Improving pedal edema Neurological exam: PRESENT: alert, awake, oriented to person, oriented to place , oriented to time, oriented to situation, CN II-XII grossly intact. ABSENT: motor sensory deficit Psychiatric exam: PRESENT: appropriate affect, normal mood. ABSENT: homicidal ideation, suicidal ideation Skin exam: PRESENT: dry, intact, warm. ABSENT: cyanosis, rash Results Laboratory Results: 02/02/17 10:10 02/02/17 10:10 02/02/17 02/02/17 10:10 10:10 WBC 6.5 RBC 2.84 L Hgb 10.7 L Hct 31.0 L MCV 109 H MCH 37.5 H MCHC 34.3 RDW 13.1 Plt Count 112 L Seg Neutrophils % 52.7 Lymphocytes % 39.8 Monocytes % 4.9 Eosinophils % 1.6 Basophils % 1.0 Absolute Neutrophils 3.4 Absolute Lymphocytes 2.6 Absolute Monocytes 0.3 Absolute Eosinophils 0.1 Absolute Basophils 0.1 Sodium 129.7 L Potassium 4.1 Chloride 93 L Carbon Dioxide 26 Anion Gap 11 BUN 17 Creatinine 0.82 Est GFR ( Amer) > 60 Est GFR (Non-Af Amer) > 60 Glucose 119 H Calcium 8.2 L Magnesium 1.3 L Impressions: Abdomen/Pelvis CT 01/23/17 21:27 IMPRESSION: Diffuse ascites. Large bilateral pleural effusions, left greater than right. Basilar compressive atelectasis. Anasarca. Head CT 01/29/17 00:00 IMPRESSION: MILD CHRONIC CHANGES OF ATROPHY AND MICROVASCULAR ISCHEMIA. NO ACUTE PROCESS. KUB X-Ray 02/02/17 00:00 IMPRESSION: PROBABLE DIFFUSE ILEUS. Assessment & Plan - Diagnosis (1) Senile debility Is this a current diagnosis for this admission?: YesPlan: See attending physician orders. (2) Hypokalemia due to loss of potassium Is this a current diagnosis for this admission?: YesPlan: See attending physician orders. (3) Ascites Qualifiers: Ascites type: other type Qualified Code(s): R18.8 - Other ascites Is this a current diagnosis for this admission?: YesPlan: Improved. See attending physician orders. (4) Atrial fibrillation Qualifiers: Atrial fibrillation type: chronic Qualified Code(s): I48.2 - Chronic atrial fibrillation Is this a current diagnosis for this admission?: YesPlan: See attending physician orders. (5) Chronic diarrhea Is this a current diagnosis for this admission?: YesPlan: More issue with constipation presently. Most likely secondary to management of OIC related to opiate usage for chronic pain management. See attending physician orders. (6) Hypoalbuminemia Is this a current diagnosis for this admission?: YesPlan: See attending physician orders. (7) Hypocalcemia Is this a current diagnosis for this admission?: YesPlan: Resolved. See attending physician orders. (8) Hypomagnesemia Is this a current diagnosis for this admission?: YesPlan: See attending physician orders. (9) Chronic use of opiate drugs therapeutic purposes Is this a current diagnosis for this admission?: YesPlan: Maintain on Amitiza 24 mcg p.o bid for his IOC management. See attending physician orders. (10) Probable sepsis Is this a current diagnosis for this admission?: YesPlan: See attending physician orders. (11) Anasarca Is this a current diagnosis for this admission?: YesPlan: See attending physician orders. (12) Constipation due to opioid therapy Is this a current diagnosis for this admission?: YesPlan: Continue Amitiza 24 mcg p.o bid. I will order for KUB abdomen and administration of Dulcolax suppository 10mg NH x 1 dose. - Time Time Spent with patient: 25-34 minutes Medications reviewed and adjusted accordingly: Yes Anticipated discharge: Home with Homehealth Within: Other - Inpatient Certification Medical Necessity: Need Close Monitoring Due to Risk of Patient Decompensation, Need For Continuous Telemetry Monitoring, Need for Pain Control, Risk of Complication if Not Cared For in Hospital Post Hospital Care: D/C Hvac Design Engineer Documentation - Plan Summary Plan Summary: See attending physician orders.
[2017-02-02] MEDS: MAGNESIUM SULFATE/D5W 1 GM/100 ML RTUPB IV SCH ×2 (17:49→20:53)
[2017-02-02] MEDS: FINASTERIDE 5 MG TABLET PO SCH (17:49)
[2017-02-02] MEDS: MIRTAZAPINE 15 MG TABLET PO SCH (21:45)
[2017-02-02] MEDS: ATORVASTATIN CALCIUM 40 MG TABLET PO SCH (21:46)
[2017-02-03] MEDS: OXYCODONE-ACETAMINOPHEN 5-325 MG TABLET PO PRN ×2 (00:24→21:15)
[2017-02-03] MEDS: OXYCODONE HCL IR 5 MG TABLET PO PRN ×2 (00:25→21:15)
[2017-02-03] MEDS: LANSOPRAZOLE 30 MG TAB.RAP.DR PO SCH (05:44)
[2017-02-03 06:07] LABS: ANION GAP 9 (5-19); BLOOD UREA NITROGEN 19 mg/dL (7-20); CALCIUM 8.6 mg/dL (8.4-10.2); CARBON DIOXIDE 29 mmol/L (22-30); CHLORIDE 91 mmol/L (98-107); CREATININE RESULT 0.81 mg/dL (0.52-1.25); GLUCOSE 130 mg/dL (75-110); MAGNESIUM 1.8 mg/dL (1.6-2.3); SODIUM 128.5 mmol/L (137-145)
[2017-02-03] MEDS: BISACODYL 10 MG SUPP.RECT PR PRN (08:35)
[2017-02-03] MEDS: ENOXAPARIN SODIUM INJ 40 MG/0.4 ML DISP.SYRIN SUBCUT SCH (08:36)
[2017-02-03] MEDS: ASPIRIN 81 MG TABLET, CHEWABLE PO SCH (10:12)
[2017-02-03] MEDS: TAMSULOSIN HCL 0.4 MG CAP.SR.24H PO SCH (10:12)
[2017-02-03] MEDS: LUBIPROSTONE 24 MCG CAPSULE PO SCH ×2 (10:12→21:15)
[2017-02-03] MEDS: POTASSIUM CHLORIDE 10 MEQ TABLET.SA PO SCH (10:12)
[2017-02-03] MEDS: FOLIC ACID 1 MG TABLET PO SCH (10:12)
[2017-02-03] MEDS: NADOLOL 40 MG TABLET PO SCH (10:12)
[2017-02-03] MEDS: MAGNESIUM OXIDE 400 MG TABLET PO SCH ×2 (10:12→17:34)
[2017-02-03] MEDS: VALSARTAN 80 MG TABLET PO SCH (10:12)
[2017-02-03] MEDS: FUROSEMIDE INJ/PF 40 MG/4 ML SDV IV SCH (11:12)
[2017-02-03] MEDS: FINASTERIDE 5 MG TABLET PO SCH (17:34)
--- NOTE | 2017-02-03 18:14 | PDOC PROGRESS REPORT ---
Subjective Progress Note for:: 02/03/17 Subjective:: There is worsening of nausea with episode of vomiting earlier today and need for Zofran administration. No significant abdominal pain. He denied chest pain or difficulty with breathing. Appetite and P.O intake remain poor so far today. No reported fever or chills but his blood pressure has been in low range with need for 500 ml of normal saline bolus administration. I had extensive discussion with patient and spouse at bedside today regarding resuscitation status and patient choice to be DNR at this time. Physical Exam Vital Signs: Temp Pulse Resp BP Pulse Ox 97.4 F 81 19 63/36 L 83 L 02/03/17 15:26 02/03/17 15:26 02/03/17 15:26 02/03/17 15:26 02/03/17 15:26 Intake & Output 02/02/17 02/03/17 02/04/17 06:59 06:59 06:59 Intake Total 1846 964 500 Output Total 1400 1475 Balance 446 -511 500 Weight 72.1 kg 70.1 kg Results Laboratory Results: 02/02/17 10:10 02/03/17 04:38 02/03/17 04:38 Sodium 128.5 L Potassium 4.0 Chloride 91 L Carbon Dioxide 29 Anion Gap 9 BUN 19 Creatinine 0.81 Est GFR ( Amer) > 60 Est GFR (Non-Af Amer) > 60 Glucose 130 H Calcium 8.6 Magnesium 1.8 Impressions: Abdomen/Pelvis CT 01/23/17 21:27 IMPRESSION: Diffuse ascites. Large bilateral pleural effusions, left greater than right. Basilar compressive atelectasis. Anasarca. Head CT 01/29/17 00:00 IMPRESSION: MILD CHRONIC CHANGES OF ATROPHY AND MICROVASCULAR ISCHEMIA. NO ACUTE PROCESS. KUB X-Ray 02/02/17 00:00 IMPRESSION: PROBABLE DIFFUSE ILEUS. Assessment & Plan - Diagnosis (1) Senile debility Is this a current diagnosis for this admission?: YesPlan: See attending physician orders. (2) Hypokalemia due to loss of potassium Is this a current diagnosis for this admission?: YesPlan: Resolved. See attending physician orders. (3) Ascites Qualifiers: Ascites type: other type Qualified Code(s): R18.8 - Other ascites Is this a current diagnosis for this admission?: YesPlan: Improved. I will hold off on Lasix usage in view of his low blood pressure. See attending physician orders. (4) Atrial fibrillation Qualifiers: Atrial fibrillation type: chronic Qualified Code(s): I48.2 - Chronic atrial fibrillation Is this a current diagnosis for this admission?: YesPlan: See attending physician orders. (5) Chronic diarrhea Is this a current diagnosis for this admission?: YesPlan: This is most likely secondary to management of his OIC related to opiate usage for chronic pain management. See attending physician orders. (6) Hypoalbuminemia Is this a current diagnosis for this admission?: YesPlan: See attending physician orders. (7) Hypocalcemia Is this a current diagnosis for this admission?: YesPlan: Resolved. See attending physician orders. (8) Hypomagnesemia Is this a current diagnosis for this admission?: YesPlan: Resolved. See attending physician orders. (9) Chronic use of opiate drugs therapeutic purposes Is this a current diagnosis for this admission?: YesPlan: I will discontinue use of Fentanyl patch in view of his ongoing constipation with intestinal ileus and low blood pressure. Maintain on Amitiza 24 mcg p.o bid for his IOC management. Patient will receive soap sub enema treatment. See attending physician orders. (10) Probable sepsis Is this a current diagnosis for this admission?: YesPlan: See attending physician orders. (11) Anasarca Is this a current diagnosis for this admission?: YesPlan: See attending physician orders. (12) Constipation due to opioid therapy Is this a current diagnosis for this admission?: YesPlan: Continue Amitiza 24 mcg p.o bid with use of soap sub enema to induce bowel movement. I will discontinue Fentanyl usage. - Time Time Spent with patient: 35 or more minutes Medications reviewed and adjusted accordingly: Yes Anticipated discharge: Home with Homehealth Within: Other - Inpatient Certification Based on my medical assessment, after consideration of the patient's comorbidities, presenting symptoms, or acuity I expect that the services needed warrant INPATIENT care.: Yes I certify that my determination is in accordance with my understanding of Medicare's requirements for reasonable and necessary INPATIENT services [42 CFR 412.3e].: Yes Medical Necessity: Need Close Monitoring Due to Risk of Patient Decompensation, Need For IV Fluids, Need for Pain Control, Risk of Complication if Not Cared For in Hospital Post Hospital Care: D/C Veneer Stapler Documentation - Plan Summary Plan Summary: See attending physician orders.
[2017-02-03] MEDS: ATORVASTATIN CALCIUM 40 MG TABLET PO SCH (21:14)
[2017-02-03] MEDS: MIRTAZAPINE 15 MG TABLET PO SCH (21:15)
[2017-02-03] MEDS: POLYETHYLENE GLYCOL 3350 POWDER 17 GM/1 PACKET PO PRN (21:16)
[2017-02-03] MEDS: TRIMETHOBENZAMIDE HCL 300 MG CAPSULE PO PRN (22:08)
[2017-02-04] MEDS: ONDANSETRON HCL INJ/PF 4 MG/2 ML SDV IV PRN ×3 (01:05→13:33)
[2017-02-04] MEDS: OXYCODONE HCL IR 5 MG TABLET PO PRN ×3 (03:16→22:52)
[2017-02-04] MEDS: OXYCODONE-ACETAMINOPHEN 5-325 MG TABLET PO PRN ×3 (03:16→22:51)
[2017-02-04] MEDS: LANSOPRAZOLE 30 MG TAB.RAP.DR PO SCH (06:38)
[2017-02-04] MEDS: ENOXAPARIN SODIUM INJ 40 MG/0.4 ML DISP.SYRIN SUBCUT SCH (07:19)
[2017-02-04] MEDS: LUBIPROSTONE 24 MCG CAPSULE PO SCH ×2 (09:44→22:55)
[2017-02-04] MEDS: NADOLOL 40 MG TABLET PO SCH (09:45)
[2017-02-04] MEDS: FUROSEMIDE INJ/PF 40 MG/4 ML SDV IV SCH (09:45)
[2017-02-04] MEDS: FOLIC ACID 1 MG TABLET PO SCH (09:45)
[2017-02-04] MEDS: MAGNESIUM OXIDE 400 MG TABLET PO SCH ×2 (09:45→17:00)
[2017-02-04] MEDS: VALSARTAN 80 MG TABLET PO SCH (09:45)
[2017-02-04] MEDS: ASPIRIN 81 MG TABLET, CHEWABLE PO SCH (09:45)
[2017-02-04] MEDS: TAMSULOSIN HCL 0.4 MG CAP.SR.24H PO SCH (09:45)
[2017-02-04] MEDS: POTASSIUM CHLORIDE 10 MEQ TABLET.SA PO SCH (09:45)
[2017-02-04] MEDS: TRIMETHOBENZAMIDE HCL 300 MG CAPSULE PO PRN (10:48)
--- NOTE | 2017-02-04 16:03 | PDOC PROGRESS REPORT ---
Subjective Progress Note for:: 02/04/17 Subjective:: Patient was seen by the bedside, there is no new complaint he has multiple comorbid conditions and the plan is to transition care to hospice care Physical Exam Vital Signs: Temp Pulse Resp BP Pulse Ox 97.2 F 65 18 106/54 L 98 02/04/17 15:27 02/04/17 15:27 02/04/17 15:27 02/04/17 15:27 02/04/17 15:27 Intake & Output 02/03/17 02/04/17 02/05/17 06:59 06:59 06:59 Intake Total 964 500 100 Output Total 1475 0 50 Balance -511 500 50 Weight 70.1 kg 71 kg General appearance: PRESENT: mild distress Eye exam: PRESENT: PERRLA Cardiovascular exam: PRESENT: +S1, +S2 GI/Abdominal exam: PRESENT: distended Results Laboratory Results: 02/02/17 10:10 02/03/17 04:38 Impressions: Abdomen/Pelvis CT 01/23/17 21:27 IMPRESSION: Diffuse ascites. Large bilateral pleural effusions, left greater than right. Basilar compressive atelectasis. Anasarca. Head CT 01/29/17 00:00 IMPRESSION: MILD CHRONIC CHANGES OF ATROPHY AND MICROVASCULAR ISCHEMIA. NO ACUTE PROCESS. KUB X-Ray 02/02/17 00:00 IMPRESSION: PROBABLE DIFFUSE ILEUS. Assessment & Plan - Diagnosis (1) Anasarca Is this a current diagnosis for this admission?: Yes (2) Ascites Qualifiers: Ascites type: other type Qualified Code(s): R18.8 - Other ascites Is this a current diagnosis for this admission?: Yes (3) Atrial fibrillation Qualifiers: Atrial fibrillation type: chronic Qualified Code(s): I48.2 - Chronic atrial fibrillation Is this a current diagnosis for this admission?: Yes (4) Chronic diarrhea Is this a current diagnosis for this admission?: Yes (5) Chronic use of opiate drugs therapeutic purposes Is this a current diagnosis for this admission?: Yes (6) Constipation due to opioid therapy Is this a current diagnosis for this admission?: Yes (7) Hypoalbuminemia Is this a current diagnosis for this admission?: Yes (8) Hypocalcemia Is this a current diagnosis for this admission?: Yes
[2017-02-04] MEDS: FINASTERIDE 5 MG TABLET PO SCH (17:00)
[2017-02-04] MEDS: ATORVASTATIN CALCIUM 40 MG TABLET PO SCH (22:52)
[2017-02-04] MEDS: MIRTAZAPINE 15 MG TABLET PO SCH (22:52)
[2017-02-05] MEDS: OXYCODONE HCL IR 5 MG TABLET PO PRN ×3 (05:02→20:15)
[2017-02-05] MEDS: LANSOPRAZOLE 30 MG TAB.RAP.DR PO SCH (05:03)
[2017-02-05] MEDS: OXYCODONE-ACETAMINOPHEN 5-325 MG TABLET PO PRN ×3 (05:03→20:15)
[2017-02-05] MEDS: ONDANSETRON HCL INJ/PF 4 MG/2 ML SDV IV PRN (05:14)
[2017-02-05] MEDS: ENOXAPARIN SODIUM INJ 40 MG/0.4 ML DISP.SYRIN SUBCUT SCH (09:13)
[2017-02-05] MEDS: NADOLOL 40 MG TABLET PO SCH (09:15)
[2017-02-05] MEDS: FUROSEMIDE INJ/PF 40 MG/4 ML SDV IV SCH (09:15)
[2017-02-05] MEDS: VALSARTAN 80 MG TABLET PO SCH (09:15)
[2017-02-05] MEDS: TAMSULOSIN HCL 0.4 MG CAP.SR.24H PO SCH (09:19)
[2017-02-05] MEDS: MAGNESIUM OXIDE 400 MG TABLET PO SCH ×2 (09:19→18:01)
[2017-02-05] MEDS: FOLIC ACID 1 MG TABLET PO SCH (09:19)
[2017-02-05] MEDS: ASPIRIN 81 MG TABLET, CHEWABLE PO SCH (09:19)
[2017-02-05] MEDS: LUBIPROSTONE 24 MCG CAPSULE PO SCH ×2 (09:19→22:43)
[2017-02-05] MEDS: POTASSIUM CHLORIDE 10 MEQ TABLET.SA PO SCH (09:19)
--- NOTE | 2017-02-05 16:52 | PDOC PROGRESS REPORT ---
Subjective Progress Note for:: 02/05/17 Subjective:: Patient was seen by the bedside, there is no new complaint he has multiple comorbid conditions and the plan is to transition care to hospice care Physical Exam Vital Signs: Temp Pulse Resp BP Pulse Ox 97.3 F 56 L 18 108/70 96 02/05/17 15:31 02/05/17 15:31 02/05/17 15:31 02/05/17 16:36 02/05/17 15:31 Intake & Output 02/04/17 02/05/17 02/06/17 06:59 06:59 06:59 Intake Total 500 504 0 Output Total 0 215 0 Balance 500 289 0 Weight 71 kg 75 kg General appearance: PRESENT: no acute distress Eye exam: PRESENT: PERRLA Respiratory exam: PRESENT: rhonchi Cardiovascular exam: PRESENT: +S1, +S2 Results Laboratory Results: 02/02/17 10:10 02/03/17 04:38 Impressions: Abdomen/Pelvis CT 01/23/17 21:27 IMPRESSION: Diffuse ascites. Large bilateral pleural effusions, left greater than right. Basilar compressive atelectasis. Anasarca. Head CT 01/29/17 00:00 IMPRESSION: MILD CHRONIC CHANGES OF ATROPHY AND MICROVASCULAR ISCHEMIA. NO ACUTE PROCESS. KUB X-Ray 02/02/17 00:00 IMPRESSION: PROBABLE DIFFUSE ILEUS. Assessment & Plan - Diagnosis (1) Anasarca Is this a current diagnosis for this admission?: Yes (2) Ascites Qualifiers: Ascites type: other type Qualified Code(s): R18.8 - Other ascites Is this a current diagnosis for this admission?: Yes (3) Atrial fibrillation Qualifiers: Atrial fibrillation type: chronic Qualified Code(s): I48.2 - Chronic atrial fibrillation Is this a current diagnosis for this admission?: Yes (4) Chronic diarrhea Is this a current diagnosis for this admission?: Yes (5) Chronic use of opiate drugs therapeutic purposes Is this a current diagnosis for this admission?: Yes (6) Constipation due to opioid therapy Is this a current diagnosis for this admission?: Yes (7) Hypoalbuminemia Is this a current diagnosis for this admission?: Yes (8) Hypocalcemia Is this a current diagnosis for this admission?: Yes
[2017-02-05] MEDS: FINASTERIDE 5 MG TABLET PO SCH (18:01)
[2017-02-05] MEDS: MIRTAZAPINE 15 MG TABLET PO SCH (22:41)
[2017-02-05] MEDS: ATORVASTATIN CALCIUM 40 MG TABLET PO SCH (22:43)
[2017-02-06] MEDS: LANSOPRAZOLE 30 MG TAB.RAP.DR PO SCH (05:07)
[2017-02-06] MEDS: OXYCODONE-ACETAMINOPHEN 5-325 MG TABLET PO PRN ×2 (05:08→12:39)
[2017-02-06] MEDS: OXYCODONE HCL IR 5 MG TABLET PO PRN ×2 (05:08→12:40)
[2017-02-06] MEDS: ENOXAPARIN SODIUM INJ 40 MG/0.4 ML DISP.SYRIN SUBCUT SCH (07:55)
[2017-02-06] MEDS: LUBIPROSTONE 24 MCG CAPSULE PO SCH (09:39)
[2017-02-06] MEDS: MAGNESIUM OXIDE 400 MG TABLET PO SCH ×2 (09:39→17:15)
[2017-02-06] MEDS: ASPIRIN 81 MG TABLET, CHEWABLE PO SCH (09:39)
[2017-02-06] MEDS: FOLIC ACID 1 MG TABLET PO SCH (09:39)
[2017-02-06] MEDS: TAMSULOSIN HCL 0.4 MG CAP.SR.24H PO SCH (09:39)
[2017-02-06] MEDS: POTASSIUM CHLORIDE 10 MEQ TABLET.SA PO SCH (09:39)
[2017-02-06] MEDS: FUROSEMIDE INJ/PF 40 MG/4 ML SDV IV SCH (10:45)
[2017-02-06] MEDS: NADOLOL 40 MG TABLET PO SCH (10:45)
[2017-02-06] MEDS: VALSARTAN 80 MG TABLET PO SCH (10:45)
[2017-02-06 16:36] VITALS: BP 106/43
[2017-02-06] MEDS: FINASTERIDE 5 MG TABLET PO SCH (17:15)
--- NOTE | 2017-02-06 18:25 | Death Summary ---
Summary Date : 02/06/17 - 18:10Hour. 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 (2) Hypokalemia due to loss of potassium Is this a current diagnosis for this admission?: Yes (3) Ascites Is this a current diagnosis for this admission?: Yes (4) Atrial fibrillation Is this a current diagnosis for this admission?: Yes (5) Chronic diarrhea Is this a current diagnosis for this admission?: Yes (6) Hypoalbuminemia Is this a current diagnosis for this admission?: Yes (7) Hypocalcemia Is this a current diagnosis for this admission?: Yes (8) Hypomagnesemia Is this a current diagnosis for this admission?: Yes (9) Chronic use of opiate drugs therapeutic purposes Is this a current diagnosis for this admission?: Yes (10) Probable sepsis Is this a current diagnosis for this admission?: Yes (11) Anasarca Is this a current diagnosis for this admission?: Yes (12) Constipation due to opioid therapy Is this a current diagnosis for this admission?: Yes Hospital Course:: He was admitted on 01/23/2017 with senile debility and significant electrolyte derangement including hypokalemia, hypomagnesemia and hypocalcemia. There was reported preadmission diarrhea that was not witnessed during his hospitalization and probably related to consequence of his treatment for opiate induce constipation. Due to associated leukocytosis at presentation there was concern for infectious process and he eventually responded to antibiotic coverage with resolution of his leukocytosis. His clinical condition subsequently deteriorated with worsening difficulty with constipation. His KUB film suggested probable diffuse ileus, probably due to opiate usage for pain management. Patient and spouse did agreed to DNR status for which he was subsequently place. He remain on active clinical management until his demise today at 18:10 hour with spouse and daughter at bedside.
== END 2017-02-06 20:15 | disposition expired | DRG 640 ==
LOC: ER 18:08 → EH 22:39 → 3W 01-24 04:17
PROVIDERS: ADMIT Internal Medicine Geriatric Medicine; ATTEND Internal Medicine Geriatric Medicine
DX: E87.6 Hypokalemia (principal); A41.9 Sepsis, unspecified organism; R18.8 Other ascites; R19.7 Diarrhea, unspecified; E83.51 Hypocalcemia; E83.42 Hypomagnesemia; K59.03 Drug induced constipation; T40.2X5A Adverse effect of other opioids, initial encounter; Z66 Do not resuscitate; R54 Age-related physical debility; N40.1 Benign prostatic hyperplasia with lower urinary tract symptoms; E78.5 Hyperlipidemia, unspecified; I10 Essential (primary) hypertension; K21.9 Gastro-esophageal reflux disease without esophagitis; M19.90 Unspecified osteoarthritis, unspecified site; F32.9 Major depressive disorder, single episode, unspecified; Z90.49 Acquired absence of other specified parts of digestive tract; Z87.891 Personal history of nicotine dependence; Z79.82 Long term (current) use of aspirin; Z79.899 Other long term (current) drug therapy
CPT/HCPCS: 36415; 70450; 74000; 74176; 80048; 80053; 81001; 82272; 82330; 82550; 82553; 83735; 84100; 85025; 85610; 85730; 87040; 93005; 93010; 96365; 99285; A9270 GY; G8978-GP; G8979-GP; J0610; J0744; J1650; J1940; J2405; J3475; J3490; J7060; S0119